=== PATIENT | male | born 1940 | race Caucasian/White ===

== ENCOUNTER 2017-02-06 12:08 | Emergency (ER) | payer OTHER ==
[2017-02-06 12:13] VITALS: BP 153/88; BMI 34.2
--- NOTE | 2017-02-06 12:34 | DR.GENAD ---
HPI - PCP Primary Care Physician: angela - Complaint/Symptoms Chief Complaint Doctors Comments: Patient also reports that he thinks about sex often but has not had intercourse since prostic irradiation and has a desire but no erection. Chief Complaint:: patient stated he has been short of breath that has been going on for several weeks. he also stated he has been weak and tired all the time. - Source History Provided: Patient - Mode of Arrival Mode of Arrival: Ambulatory - Timing Onset of Chief Complaint: 01/09/17 PMH - PMH Past Medical History: Yes Past Medical History: Coronary Artery Disease, Hypertension, Hypothyroidism Past Surgical History: Yes Surgical History: Tonsillectomy - Family History History of Family Medical Conditions: Yes Family Medical History: Coronary Artery Disease - Social History Does patient currently use any type of tobacco product: No Have you used tobacco products in the last 12 months: No Type of Tobacco Use: None Does any household member use tobacco: No Alcohol Use: Rarely Do you use any recreational Drugs:: No Lives With: Family Lives Where: Home - infectious screening In the last 2 months have you had wt loss of >10#?: NO Have you had fever, night sweats or hemotysis?: No Have you traveled outside the country in the last 6 months?: No Isolation: Standard ROS - Review of Systems Eyes: No Symptoms Reported ENTM: No Symptoms Reported Respiratoy: No Symptoms Reported Cardiovascular: No Symptoms Reported Gastrointestinal/Abdominal: No Symptoms Reported Genitourinary: No Symptoms Reported Neurological: No Symptoms Reported Musculoskeletal: No Symptoms Reported Integumentary: No Symptoms Reported Hematologic/Lymphatic: No Symptoms Reported Endocrine: No Symptoms Reported Psychiatric: No Symptoms Reported All Other Systems: Reviewed and Negative PE - Vital Signs Vitals: Temperature 98.9 F Pulse Rate 74 Respiratory Rate 16 Blood Pressure [Left Arm] 137/69 Blood Pressure 153/88 O2 Sat by Pulse Oximetry 98 - General Limitations: No Limitations General Appearance: Alert, In No Apparent Distress - Head Head Exam: Normal Inspection, Atraumatic - Eyes Eye exam: Normal Appearance, PERRL, EOMI - ENT ENT Exam: Normal Exam External Ear Exam: Normal External Inspection TM/Canal Exam: Bilateral Normal Nose Exam: Normal Nose Exam Mouth Exam: Normal Inspection Throat Exam: Normal Inspection - Neck Neck Exam: Normal Inspection, Full ROM - Chest Chest Inspection: Normal Inspection - Respiratory Respiratory Exam: Normal Lung Sounds Bilat Respiratory Exam: Bilateral Clear to Auscultation - Cardiovascular Cardiovascular Exam: Regular Rate, Normal Rhythm - Abdominal Exam Abdominal Exam: Normal Inspection Abdominal Tenderness: negative: RUQ, RLQ, LUQ, LLQ, Epigastrium, Suprapubic, Diffuse, Mild, Moderate, Severe, Other - Extremities Extremities Exam: Normal Inspection, Full ROM - Back Back Exam: Normal Inspection, Full ROM - Neurologic Neurological Exam: Alert, Oriented X3, CN II-XII Intact ROR - Labs Reviewed Result Diagrams: 02/06/17 12:48 02/06/17 12:48 Laboratory: WBC 5.8 X10^3/uL (3.6-10.0) 02/06/17 12:48 RBC 4.20 X10^6/uL (4.7-6.0) L 02/06/17 12:48 Hgb 13.0 g/dL (13.5-18.0) L 02/06/17 12:48 Hct 37.5 % (42.0-54.0) L 02/06/17 12:48 MCV 89.3 fL (80.0-100.0) 02/06/17 12:48 MCH 30.9 pg (27.0-34.0) 02/06/17 12:48 MCHC 34.6 g/dL (33.0-35.0) 02/06/17 12:48 RDW 13.5 % (11.6-16.5) 02/06/17 12:48 Plt Count 140 X10^3/uL (150.0-450.0) L 02/06/17 12:48 MPV 8.4 fL (7.4-11.0) 02/06/17 12:48 Neut % 75.9 % (42.0-75.0) H 02/06/17 12:48 Lymph % 9.8 % (21.0-51.0) L 02/06/17 12:48 Sunflower % 10.4 % (0.0-13.0) 02/06/17 12:48 Eos % 3.3 % (0.9-2.9) H 02/06/17 12:48 Baso % 0.6 % (0.2-1.0) 02/06/17 12:48 Neut # 4.4 x10^3/uL (2.2-4.8) 02/06/17 12:48 Lymph # 0.6 X10^3/uL (1.3-2.9) L 02/06/17 12:48 Sunflower # 0.6 x10^3/uL (0.3-0.8) 02/06/17 12:48 Eos # 0.2 x10^3/uL (0.0-0.2) 02/06/17 12:48 Baso # 0.0 X10^3/uL (0.0-0.1) 02/06/17 12:48 Absolute Nucleated RBC 0.0 /100WBC 02/06/17 12:48 D-Dimer 437 ng/mL (0-400) H* 02/06/17 12:48 Sodium 140 mmol/L (136-145) 02/06/17 12:48 Corrected Sodium TNP 02/06/17 12:48 Potassium 5.0 mmol/L (3.5-5.1) 02/06/17 12:48 Chloride 106 mmol/L (98-107) 02/06/17 12:48 Carbon Dioxide 28.2 mmol/L (21-32) 02/06/17 12:48 BUN 21 mg/dL (7-18) H 02/06/17 12:48 Creatinine 0.97 mg/dL (0.70-1.30) 02/06/17 12:48 Est GFR (MDRD) Af Amer > 60 (>60) 02/06/17 12:48 Est GFR (MDRD) Non-Af > 60 (>60) 02/06/17 12:48 Glucose 93 mg/dL (65-99) 02/06/17 12:48 Calcium 8.9 mg/dL (8.5-10.1) 02/06/17 12:48 Corrected Calcium TNP 02/06/17 12:48 Total Bilirubin 1.30 mg/dL (0.2-1.0) H 02/06/17 12:48 AST 25 Units/L (15-37) 02/06/17 12:48 ALT 34 Units/L (12-78) 02/06/17 12:48 Alkaline Phosphatase 104 Units/L (46-116) 02/06/17 12:48 Creatine Kinase 105 Units/L (39-308) 02/06/17 12:48 CK-MB (CK-2) 1.5 ng/mL (0-4.0) 02/06/17 12:48 CK/CKMB % Calc 1.4 % (<4) 02/06/17 12:48 Troponin I < 0.02 ng/mL (0-1.5) 02/06/17 12:48 Total Protein 7.3 g/dL (6.4-8.2) 02/06/17 12:48 Albumin 3.9 g/dL (3.4-5.0) 02/06/17 12:48 Globulin 3.4 g/dL (2.5-4.5) 02/06/17 12:48 Albumin/Globulin Ratio 1.1 Ratio (1.1-2.1) 02/06/17 12:48 - Diagnosis Discharge Problem: Dyspnea on effort, Erectile disorder due to medical condition in male - Discharge Plan Condition: Stable - Follow ups/Referrals Follow ups/Referrals: Srinivasa Aviles [Primary Care Provider] - 3 days - Instructions
[2017-02-06 13:02] LABS: BASOPHILS % (AUTO) 0.6 % (0.2-1.0); EOSINOPHILS # (AUTO) 0.2 x10^3/uL (0.0-0.2); EOSINOPHILS % (AUTO) 3.3 % (0.9-2.9); HEMATOCRIT 37.5 % (42.0-54.0); LYMPHOCYTES # (AUTO) 0.6 X10^3/uL (1.3-2.9); LYMPHOCYTES % (AUTO) 9.8 % (21.0-51.0); MEAN CORPUSCULAR HEMOGLOBIN 30.9 pg (27.0-34.0); MEAN CORPUSCULAR HGB CONC 34.6 g/dL (33.0-35.0); MEAN CORPUSCULAR VOLUME 89.3 fL (80.0-100.0); MEAN PLATELET VOLUME 8.4 fL (7.4-11.0); MONOCYTES # (AUTO) 0.6 x10^3/uL (0.3-0.8); MONOCYTES % (AUTO) 10.4 % (0.0-13.0); NEUTROPHILS # (AUTO) 4.4 x10^3/uL (2.2-4.8); NEUTROPHILS % (AUTO) 75.9 % (42.0-75.0); PLATELET COUNT 140 X10^3/uL (150.0-450.0); RED CELL DISTRIBUTION WIDTH 13.5 % (11.6-16.5); WHITE BLOOD COUNT 5.8 X10^3/uL (3.6-10.0)
[2017-02-06 13:16] LABS: BLOOD UREA NITROGEN 21 mg/dL (7-18); CALCIUM 8.9 mg/dL (8.5-10.1); CARBON DIOXIDE 28.2 mmol/L (21-32); CHLORIDE 106 mmol/L (98-107); CREATININE 0.97 mg/dL (0.70-1.30); GLUCOSE 93 mg/dL (65-99); SODIUM 140 mmol/L (136-145); TROPONIN I < 0.02 ng/mL (0-1.5); eGFR BLACK RACES > 60 (>60); eGFR NON BLACK RACES > 60 (>60)
[2017-02-06 13:20] LABS: ALANINE AMINOTRANSFERASE 34 Units/L (12-78); ALBUMIN 3.9 g/dL (3.4-5.0); ALKALINE PHOSPHATASE 104 Units/L (46-116); ASPARTATE AMINO TRANSFERASE 25 Units/L (15-37); CKMB % 1.4 % (<4); CREATINE KINASE 105 Units/L (39-308); CREATINE KINASE MB 1.5 ng/mL (0-4.0); TOTAL PROTEIN 7.3 g/dL (6.4-8.2)
--- NOTE | 2017-02-06 13:22 | RAD ---
HISTORY: Shortness of breath Study: Two views of the chest Comparison: December 11, 2015 Findings: The trachea is midline. The cardiac silhouette is at the upper limits of normal. Chronic appearing interstitial changes are again seen within both lungs. The aorta is partially calcified and tortuou s. IMPRESSION: 1. No acute cardiopulmonary disease. Reported By:
[2017-02-06 13:29] LABS: D DIMER 437 ng/mL (0-400)
[2017-02-06] MEDS ORDERED: NS 100 ML IV 100 ML IV ONE (13:55)
--- NOTE | 2017-02-06 14:55 | CT ---
HISTORY: Shortness of breath with elevated D-dimer. Study: CT chest with contrast Comparison: Multiple chest x-rays dating back to December 11, 2015. Technique: Multiple axial images of the chest were obtained from the thoracic inlet to the upper abd omen after the administration of IV contrast. Dose reduction techniques including Automated Exposur e Control (AEC) and adjustment of mA and kV were utilized. Findings: The mediastinum does not demonstrate significant pathological lymphadenopathy. There is no paracard ial effusion observed. The thoracic aorta is normal in its contour without evidence for aneurysmal dilatation. The central pulmonary arterial system does not demonstrate central filling defects to s uggest pulmonary emboli. Cardiomegaly. Extensive vascular calcifications of the coronary arteries. Extensive interstitial thickening of the lungs with associated scarring and likely early honeycombin g within the bilateral lower lobes with associated areas of ground-glass opacity. No obvious pulmona ry nodules, pleural effusion , mass , or focal consolidation. The bony thorax is unremarkable in its appearance. Right 3.4 cm and left 3.8 cm simple appearing renal cysts. Remaining kidneys are unrem arkable. Otherwise, the visualized portions of the upper abdomen are grossly unremarkable. IMPRESSION: 1. No CT evidence of pulmonary embolus. 2. Chronic lung findings, concerning for interstitial lung disease such as UIP. Consider Pulmonary c onsultation and high-resolution chest CT. Reported By:
== END 2017-02-06 15:38 | disposition home or self-care (01) ==
LOC: ER 12:18
DX: R06.00 Dyspnea, unspecified (principal); N52.8 Other male erectile dysfunction; R06.02 Shortness of breath
CPT/HCPCS: 36415; 71020; 71275; 80053; 82550; 82553; 84484; 85025; 85378; 93005; 93010; 99283; A4222

== ENCOUNTER 2022-08-23 08:12 | Observation (INO) ==
--- NOTE | 2022-08-23 08:35 | EKG ---
Test Reason : CHEST PAIN Blood Pressure : */* mmHG Vent. Rate : 71 BPM Atrial Rate : 71 BPM P-R Int : 140 ms QRS Dur : 90 ms QT Int : 400 ms P-R-T Axes : 39 4 54 degrees QTc Int : 434 ms Normal sinus rhythm Normal ECG No previous ECGs available Confirmed by John Salgado ([id number]) on 08/25/2022 9:22:05 AM Referred By: Confirmed By: John Salgado
[2022-08-23 08:37] LABS: BASOPHILS % (AUTO) 0.5 % (0.2-1.0); EOSINOPHILS # (AUTO) 0.1 x10^3/uL (0.0-0.2); EOSINOPHILS % (AUTO) 0.9 % (0.9-2.9); HEMATOCRIT 37.5 % (42.0-54.0); HEMOGLOBIN 12.7 g/dL (13.5-18.0); LYMPHOCYTES # (AUTO) 1.3 X10^3/uL (1.3-2.9); LYMPHOCYTES % (AUTO) 18.8 % (21.0-51.0); MEAN CORPUSCULAR HEMOGLOBIN 30.5 pg (27.0-34.0); MEAN CORPUSCULAR HGB CONC 33.9 g/dL (33.0-35.0); MEAN CORPUSCULAR VOLUME 90.1 fL (80.0-100.0); MEAN PLATELET VOLUME 7.3 fL (7.4-11.0); MONOCYTES # (AUTO) 0.6 x10^3/uL (0.3-0.8); MONOCYTES % (AUTO) 8.4 % (0.0-13.0); NEUTROPHILS # (AUTO) 5.1 x10^3/uL (2.2-4.8); NEUTROPHILS % (AUTO) 71.4 % (42.0-75.0); RED BLOOD COUNT 4.17 X10^6/uL (4.7-6.0); WHITE BLOOD COUNT 7.2 X10^3/uL (3.6-10.0)
--- NOTE | 2022-08-23 08:37 | DR.CP ---
HPI Time Seen Time Seen by Provider: 08/23/22 08:35 PCP Primary Care Physician: Stefan Complaint Chief Complaint Doctor Comments: CHEST PAIN THAT AWAKENED HIVM THIS AM. PAIN HYRTS MORE WHEN HE BREATHES IN AND HE ALSO HAS SOB. NO PREVIOUS CARDIAC HISTORY. Chief Complaint:: Pts states that he woke up 2-3 hours ago having chest pain. On arrival pt describes pain as mid sternal and nonradiating. Pt states that the pain happens when he tries to take a deep breath and he feels like he cannot get a good breath. Pt states that he has never felt like this before. Self Treatment fo Chief Complaint: none COVID-19 Coronavirus risk:travel/contact w/high risk person: No Has patient experienced Coronavirus symptoms: Yes Coronavirus symptoms experienced: Shortness of Breath Source History Provided: Patient and Family Member Mode of Arrival Mode of Arrival: Wheelchair Timing Onset of Chief Complaint: 08/23/22 Associated Signs and Symptoms Associated Signs and Symptoms: Shortness of Breath PMH PMH Past Medical History: Yes Past Medical History: Hypertension and Hypothyroidism Past Surgical History: Yes Surgical History: Ortho Surgery, Tonsillectomy and Lithotripsy Past Surgical History Comment: knee surgery shoulder surgery skin ca removal hemorrhoid surgery x2 Family History History of Family Medical Conditions: Yes Family Medical History: Hypertension Social History Does patient currently use any type of tobacco product: No Have you used tobacco products in the last 12 months: No Type of Tobacco Use: None Alcohol Use: None Do you use any recreational Drugs:: No Lives With: Alone Lives Where: Home Travel Risk Coronavirus risk:travel/contact w/high risk person: No Has patient experienced Coronavirus symptoms: Yes Coronavirus symptoms experienced: Shortness of Breath Infectious screening In the last 2 months have you had wt loss of >10#?: NO Have you had fever, night sweats or hemotysis?: No Have you traveled outside the country in the last 6 months?: No Isolation: Respiratory ROS Review of Systems Constitutional: Other (CHEST PAIN WITH SOB) Eyes: No Symptoms Reported ENTM: No Symptoms Reported Respiratoy: Short of Breath Cardiovascular: Chest Pain Gastrointestinal/Abdominal: No Symptoms Reported Genitourinary: No Symptoms Reported Neurological: No Symptoms Reported Musculoskeletal: No Symptoms Reported Integumentary: No Symptoms Reported Hematologic/Lymphatic: No Symptoms Reported Endocrine: No Symptoms Reported Psychiatric: No Symptoms Reported PE Vitals Vitals: Temperature 97.7 F Pulse Rate 59 Respiratory Rate 20 Blood Pressure [Right Arm] 142/89 Blood Pressure 124/68 O2 Sat by Pulse Oximetry 100 General Limitations: No Limitations General Appearance: In Distress (MILD DISTRESS) Head Head Exam: Normal Inspection, Atraumatic and Normocephalic Eyes Eye exam: Normal Appearance, PERRL and EOMI Chest Chest Inspection: Normal Inspection and Symmetric Chest Wall Rise Respiratory Respiratory Exam: Normal Lung Sounds Bilat Respiratory Exam: Bilateral: Clear to Auscultation Cardiovascular Cardiovascular Exam: Regular Rate and Normal Rhythm Pulse: Normal Edema: Normal Abdominal Exam Abdominal Exam: Normal Inspection, Normal Bowel Sounds and Soft Extremities Extremities Exam: Normal Inspection and Full ROM Back Back Exam: Normal Inspection and Full ROM Neurologic Neurological Exam: Alert, Oriented X3 and CN II-XII Intact Psychiatric Psychiatric Exam: Normal Affect and Normal Mood Skin Skin Exam: Warm, Dry and Intact MDM Differential Diagnosis Differential Diagnosis: Angina, Chest Wall Pain, Myocardial Infarction and Pneumonia COURSE Treatment Treatment: PATIENT REMAINED RELATIVELY STABLE DURING ER EVALUATION. WAS GIVEN ASA 325MG AND NITROGLYCERINE 0.4MG SL AND HIS BLOOD PRESURE DROPPED TO 70 SYSTOLIC, WAS GIVEN A 1 LITER BOLUS OF NACL AND BP INCREASED TO 110 SYSTOLIC. THE PATIENT HAD A D-DIMER DONE THAT WAS ELEVATED AND HE WAS SENT TO GET CTA OF CHEST. THE CARDIAC WORKUP WAS NEGATIVE AND CHEST XRAY WAS NEGATIVE FOR INTRATHORACIC ABNORMALITY. HE HAD A ABG THAT WAS ESSENTIALLLY NORMAL AND HE WAS PLACED ON OXYGEN AND HE STATED THAT HIS SOB IMPROVED AND CHEST DISCOMFORT DEMINISHED.SPOKE TO DR RINCON ABOUT THIS PATIENT AND HE AGREED TO REFER THE PATIENT TO OBSERVATION UNDER THE CHEST PAIN PROTOCHOL. THE PATIENT AND FAMILY WERE TOLD OF THE PLAN AND WAS AGREABLE TO THE PLAN. ROR Labs Reviewed Laboratory Results Reviewed?: Yes Result Diagrams: 08/23/22 08:22 08/23/22 08:22 Laboratory: WBC 7.2 X10^3/uL (3.6-10.0) 08/23/22 08:22 RBC 4.17 X10^6/uL (4.7-6.0) L 08/23/22 08:22 Hgb 12.7 g/dL (13.5-18.0) L 08/23/22 08:22 Hct 37.5 % (42.0-54.0) L 08/23/22 08:22 MCV 90.1 fL (80.0-100.0) 08/23/22 08: MCH 30.5 pg (27.0-34.0) 08/23/22 08: MCHC 33.9 g/dL (33.0-35.0) 08/23/22 08: RDW 15.0 % (11.6-16.5) 08/23/22 08: Plt Count 131 X10^3/uL (150.0-450.0) L 08/23/22 08: MPV 7.3 fL (7.4-11.0) L 08/23/22 08: Neut % (Auto) 71.4 % (42.0-75.0) 08/23/22 08: Lymph % (Auto) 18.8 % (21.0-51.0) L 08/23/22 08: [place] % (Auto) 8.4 % (0.0-13.0) 08/23/22 08: Eos % (Auto) 0.9 % (0.9-2.9) 08/23/22 08: Baso % (Auto) 0.5 % (0.2-1.0) 08/23/22 08: Neut # (Auto) 5.1 x10^3/uL (2.2-4.8) H 08/23/22 08: Lymph # (Auto) 1.3 X10^3/uL (1.3-2.9) 08/23/22 08: [place]estone # (Auto) 0.6 x10^3/uL (0.3-0.8) 08/23/22 08: Eos # (Auto) 0.1 x10^3/uL (0.0-0.2) 08/23/22 08: Baso # (Auto) 0.0 X10^3/uL (0.0-0.1) 08/23/22 08: Absolute Nucleated RBC 0.0 /100WBC 08/23/22 08: PT 15.7 SECONDS (11.8-14.3) 08/23/22 08: INR Target Range - 08/23/22 08: INR 1.30 (0.8-1.3) 08/23/22 08:22 APTT 29.7 SECONDS (22.9-36.5) 08/23/22 08:22 PTT Comment - 08/23/22 08:22 D-Dimer 1.94 ug/ml (0.0-0.57) H 08/23/22 08:22 Sample Site Lra 08/23/22 09:12 ABG pH 7.470 (7.35-7.45) H 08/23/22 09:12 ABG pCO2 36.0 mmHg (35.0-45.0) 08/23/22 09:12 ABG pO2 72.0 mmHg (80.0-100.0) L 08/23/22 09:12 ABG HCO3 26.2 mmol/L (22-26) H 08/23/22 09:12 ABG O2 Saturation 95.0 % (90-100) 08/23/22 09:12 ABG Base Excess 2.6 mmol/L (-2.0-2.0) H 08/23/22 09:12 Lkoesh Test Pos 08/23/22 09:12 A-a Gradient 33.0 mmHg 08/23/22 09:12 FiO2 21.0 08/23/22 09:12 Blood Gas Comments Pt martha well eb 08/23/22 09:12 Sodium 139 mmol/L (136-145) 08/23/22 08:22 Corrected Sodium TNP 08/23/22 08:22 Potassium 4.5 mmol/L (3.5-5.1) 08/23/22 08:22 Chloride 103 mmol/L (98-107) 08/23/22 08:22 Carbon Dioxide 28.1 mmol/L (21-32) 08/23/22 08:22 BUN 17 mg/dL (7-18) 08/23/22 08:22 Creatinine 1.06 mg/dL (0.70-1.30) 08/23/22 08:22 Est GFR (MDRD) Af Amer > 60 (>60) 08/23/22 08:22 Est GFR (MDRD) Non-Af > 60 (>60) 08/23/22 08:22 Glucose 96 mg/dL (65-99) 08/23/22 08:22 Calcium 8.8 mg/dL (8.5-10.1) 08/23/22 08:22 Corrected Calcium TNP 08/23/22 08:22 Total Bilirubin 1.40 mg/dL (0.2-1.0) H 08/23/22 08:22 AST 31 Units/L (15-37) 08/23/22 08:22 ALT 41 Units/L (12-78) 08/23/22 08:22 Alkaline Phosphatase 131 Units/L (46-116) H 08/23/22 08:22 Creatine Kinase 54 Units/L (39-308) 08/23/22 08:22 Troponin I High Sens 12.2 ng/L (4.0-60.0) 08/23/22 08:22 B-Natriuretic Peptide 107 pg/mL (0-79) H 08/23/22 08:22 Total Protein 6.7 g/dL (6.4-8.2) 08/23/22 08:22 Albumin 3.6 g/dL (3.4-5.0) 08/23/22 08:22 Globulin 3.1 g/dL (2.5-4.5) 08/23/22 08:22 Albumin/Globulin Ratio 1.2 Ratio (1.1-2.1) 08/23/22 08:22 Thyroxine (T4) 10.7 ug/dL (4.7-13.3) 08/23/22 08:22 TSH 3rd Generation 3.480 uIU/mL (0.358-3.74) 08/23/22 08:22 SARS-CoV-2 (PCR) Negative (NEGATIVE) 08/23/22 08:23 Influenza Type A (PCR) Negative (NEGATIVE) 08/23/22 08:23 Influenza Type B (PCR) Negative (NEGATIVE) 08/23/22 08:23 RSV (PCR) Negative (NEGATIVE) 08/23/22 08:23 Opioid Opioid Risk Tool Age (Luke box if 16-45): Yes History of Preadolescent Sexual Abuse: No Total: 1 Total Score Risk Category: Low Risk Copyright: Jose BARRAZA predicting aberrant behaviors Discharge Plan Diagnosis Discharge Problem: Chest pain, Breath shortness Discharge Plan Patient Disposition: 09 ADMITTED INPATIENT Condition: Stable Orders to Discharge Patient Discharge Orders: Discharge (Routine); Ordered 08/23/22 Ordered By: Puma Royal Transfer (Routine); Ordered 08/23/22 Ordered By: Puma Royal
[2022-08-23] MEDS ORDERED: NITROSTAT SL ONE (08:38)
[2022-08-23] MEDS ORDERED: ASPIRIN PO ONE (08:38)
[2022-08-23] MEDS ORDERED: ASPIRIN ONE (08:46)
[2022-08-23] MEDS ORDERED: NITROSTAT ONE (08:46)
[2022-08-23 08:53] LABS: ALANINE AMINOTRANSFERASE 41 Units/L (12-78); ALBUMIN 3.6 g/dL (3.4-5.0); ALKALINE PHOSPHATASE 131 Units/L (46-116); ASPARTATE AMINO TRANSFERASE 31 Units/L (15-37); BLOOD UREA NITROGEN 17 mg/dL (7-18); CALCIUM 8.8 mg/dL (8.5-10.1); CARBON DIOXIDE 28.1 mmol/L (21-32); CHLORIDE 103 mmol/L (98-107); CREATININE 1.06 mg/dL (0.70-1.30); SODIUM 139 mmol/L (136-145); TOTAL PROTEIN 6.7 g/dL (6.4-8.2); eGFR NON BLACK RACES > 60 (>60)
[2022-08-23] MEDS ORDERED: NS 1,000 ML IV 1,000 ML ONE (09:02)
[2022-08-23] MEDS ORDERED: NS 1,000 ML IV 1,000 ML IV ONE (09:06)
[2022-08-23 09:20] LABS: ABG BASE EXCESS 2.6 mmol/L (-2.0-2.0); ABG HCO3 26.2 mmol/L (22-26)
[2022-08-23 09:21] LABS: ABG ALLEN TEST POS
[2022-08-23 09:37] LABS: T4 (THYROXINE) 10.7 ug/dL (4.7-13.3); TSH (3RD GENERATION) 3.48 uIU/mL (0.358-3.74)
--- NOTE | 2022-08-23 11:06 | CT ---
CTA CHESTCLINICAL INDICATION: MIDSTERNAL CHEST PAIN, SOB, ELEV D DIMERPROCEDURE: Non gated axial images of the chest were obtained with intravenous contrast according to pulmonary embolism protocol. MIPS were reconstructed Dose reduction techniques including Automated Exposure Control (AEC) and adjustment of mA and kV were utlized.COMPARISON:NoneFINDINGS:No evidence of a pulmonary embolism to the level of the segmental pulmonary arteries.The heart is normal in size . No pericardial effusion. Severe coronary calcification. No suspicious mediastinal or axillary lymph nodes. Severe fibrosis of the peripheral basilar lungs with probable superimposed emphysema. No focal consolidations, pleural effusions or pneumothorax .Airways are patent . No suspicious pulmonary nodules or masses .Simple bilateral renal cysts. Left adrenal nodule measuring 1.8 cm in 24 Hounsfield units.No aggressive osseous lesions.IMPRESSION:1. No evidence of pulmonary embolism.2. Severe coronary calcification, severe fibrosis of the lungs.3. Indeterminate left adrenal nodule which could be evaluated on a nonemergent outpatient basis by MRI.Electronically signed by: LOKESH BIRCH (Aug 23, 2022 11:05:40)
--- NOTE | 2022-08-23 12:27 | RAD ---
HISTORYCHEST PAIN Relevant Clinical InformationSTUDYCHEST, 1 VIEWCOMPARISON03/14/2021FINDINGSTrachea is minimal deviated to the right there is a prominence are thick no. There is mild cardiomegaly. There is again seen interstitial changes throughout the lungs of predominance in the periphery and in the bases consistent with mild fibrosis. No dominant alveolar radiopacities, no pleural effusion or pneumothorax. There is a left shoulder prosthesis in place.IMPRESSIONNo acute cardiopulmonary findings. Stable chronic interstitial lung disease.Electronically signed by: Alycia Oakes (Aug 23, 2022 12:25:39)
[2022-08-23] MEDS: NS 1,000 ML IV 1,000 ML IV SCH (13:40)
[2022-08-23] MEDS: HEMOCYTE-PLUS PO SCH (13:40)
[2022-08-23] MEDS: ALDACTONE TAB 25 MG PO SCH (13:40)
[2022-08-23] MEDS: SYNTHROID 100 mcg TAB PO SCH (13:40)
[2022-08-23 15:52] VITALS: BMI 24.5
[2022-08-23] MEDS ORDERED: LOVENOX INJ 40 MG SYR SC ONE (19:24)
[2022-08-23] MEDS ORDERED: FLOMAX ONE (19:24)
[2022-08-23] MEDS ORDERED: LIPITOR TAB 40 MG ONE (19:24)
[2022-08-23] MEDS ORDERED: SINGULAIR TAB 10 MG ONE (19:24)
[2022-08-23] MEDS ORDERED: KLONOPIN TAB 1 MG ONE (19:24)
[2022-08-23] MEDS: LOVENOX INJ 40 MG SYR SC SCH (20:26)
[2022-08-23] MEDS ORDERED: SINGULAIR TAB 10 MG PO SCH (21:00)
[2022-08-23] MEDS ORDERED: LIPITOR TAB 40 MG PO SCH (21:00)
[2022-08-23] MEDS ORDERED: FLOMAX PO SCH (21:00)
[2022-08-23] MEDS ORDERED: KLONOPIN TAB 1 MG PO SCH (21:00)
[2022-08-24] MEDS: NS 1,000 ML IV 1,000 ML IV SCH ×2 (02:09→04:25)
[2022-08-24 05:55] LABS: BASOPHILS % (AUTO) 0.4 % (0.2-1.0); EOSINOPHILS % (AUTO) 0.5 % (0.9-2.9); HEMATOCRIT 30.4 % (42.0-54.0); LYMPHOCYTES # (AUTO) 1.6 X10^3/uL (1.3-2.9); LYMPHOCYTES % (AUTO) 22.1 % (21.0-51.0); MEAN CORPUSCULAR HEMOGLOBIN 31.2 pg (27.0-34.0); MEAN CORPUSCULAR HGB CONC 34.9 g/dL (33.0-35.0); MEAN CORPUSCULAR VOLUME 89.4 fL (80.0-100.0); MEAN PLATELET VOLUME 8.2 fL (7.4-11.0); MONOCYTES # (AUTO) 0.8 x10^3/uL (0.3-0.8); MONOCYTES % (AUTO) 11.4 % (0.0-13.0); NEUTROPHILS # (AUTO) 4.7 x10^3/uL (2.2-4.8); NEUTROPHILS % (AUTO) 65.6 % (42.0-75.0); RED BLOOD COUNT 3.41 X10^6/uL (4.7-6.0); RED CELL DISTRIBUTION WIDTH 14.8 % (11.6-16.5); WHITE BLOOD COUNT 7.2 X10^3/uL (3.6-10.0)
[2022-08-24 05:57] LABS: HEMOGLOBIN 10.6 g/dL (13.5-18.0)
[2022-08-24 06:18] LABS: ALANINE AMINOTRANSFERASE 30 Units/L (12-78); ALBUMIN 2.6 g/dL (3.4-5.0); ALKALINE PHOSPHATASE 90 Units/L (46-116); ASPARTATE AMINO TRANSFERASE 24 Units/L (15-37); BLOOD UREA NITROGEN 16 mg/dL (7-18); CALCIUM 7.8 mg/dL (8.5-10.1); CHLORIDE 105 mmol/L (98-107); CHOL/HDL RATIO 1.5 (0.0-5.0); CHOLESTEROL 80 mg/dL (0-200); COR CA(FOR HYPOALB) 8.9 mg/dL (8.5-10.1); CREATININE 0.86 mg/dL (0.70-1.30); HDL CHOLESTEROL 54 mg/dL (40-60); SODIUM 138 mmol/L (136-145); TOTAL PROTEIN 5.3 g/dL (6.4-8.2); TRIGLYCERIDES 39 mg/dL (0-150); eGFR NON BLACK RACES > 60 (>60)
[2022-08-24] MEDS: LOVENOX INJ 40 MG SYR SC SCH (08:34)
[2022-08-24] MEDS: HEMOCYTE-PLUS PO SCH (08:35)
[2022-08-24] MEDS: ALDACTONE TAB 25 MG PO SCH (08:36)
[2022-08-24] MEDS: SYNTHROID 100 mcg TAB PO SCH (08:36)
[2022-08-24] MEDS ORDERED: PROTONIX INJ 40 MG VIAL IVP SCH (09:00)
[2022-08-24] MEDS ORDERED: ASPIRIN PO SCH (09:00)
[2022-08-24 10:50] VITALS: BP 103/53
== END 2022-08-24 11:35 | disposition home or self-care (01) ==
LOC: ER 08:12 → ICU 08:12
PROVIDERS: ADMIT Internal Medicine; ATTEND Internal Medicine
DX: I10 Essential (primary) hypertension; Z85.828 Personal history of other malignant neoplasm of skin; R06.02 Shortness of breath; D35.02 Benign neoplasm of left adrenal gland; Z20.822 Contact with and (suspected) exposure to COVID-19; N28.1 Cyst of kidney, acquired; R79.1 Abnormal coagulation profile; E03.8 Other specified hypothyroidism; R07.89 Other chest pain; J84.10 Pulmonary fibrosis, unspecified

== ENCOUNTER 2024-07-06 09:01 | Inpatient (IN) ==
--- NOTE | 2024-07-06 09:37 | DR.EXTPAIN ---
HPI Time seen Time Seen by Provider: 07/06/24 09:34 PCP Primary Care Physician: Stefan HPI Comment HPI Comment: 84-year-old male with history of CADStatus post stent placement was brought in by his daughter after they found him on the floor, apparently passed out and fell last night and hit his head. He could not get up because of stiffness in his right hip and leg, hip pain. He had total knee replacement on the left side. He went up to go to the bathroom last night to pee and had a hard time initiating his micturition. He has history of prostate cancer in the past. He denies any chest pain or shortness of breath. Granddaughter measured his b lood pressure yesterday and noted to be lower than usual. He is not sure if he had fever but felt chills, muscle aches, questionable flu symptoms with a dry cough Complaint/Symptoms Chief Complaint Doctor Comments: Passed out and hit his head Chief Complaint:: Pt got up last night to get some water and his family found him in the floor this morning. Unsure of what he landed on but states that he has back pain. COVID-19 Coronavirus risk:travel/contact w/high risk person: No Has patient experienced Coronavirus symptoms: Yes Coronavirus symptoms experienced: Fever and Coughing Nurses notes reviewed Nurses Notes Review: Yes Source History Provided: Patient and Family Member Mode of arrival Mode of Arrival: Ambulatory Timing Onset of Chief Complaint: 07/06/24 Context History of: Arthritis and Nonaccidental Trauma Associated signs and symptoms Associated Signs and Symptoms: Abrasion, Weakness, Pain, Swelling, Bruising and Syncope PMH PMH Past Medical History: Yes Past Medical History: Anxiety, Coronary Artery Disease, Dyslipidemia, GERD, Hypertension and Hypothyroidism Past Surgical History: Yes Surgical History: Angioplasty/Stents, Joint Replacement, Ortho Surgery, Tonsillectomy and Other Past Surgical History Comment: Hemorrhoid sx Family History History of Family Medical Conditions: Yes Family Medical History: Coronary Artery Disease and Hypertension Social History Does patient currently use any type of tobacco product: No Have you used tobacco products in the last 12 months: No Does any household member use tobacco: No Alcohol Use: None Do you use any recreational Drugs:: No Lives With: Alone Lives Where: Home Travel Risk Coronavirus risk:travel/contact w/high risk person: No Has patient experienced Coronavirus symptoms: No Infectious screening Have you traveled outside the country in the last 6 months?: No Isolation: Standard ROS Review of Systems Constitutional: Chills, Fever, Malaise, Weakness and Loss of Appetite Eyes: No Symptoms Reported ENTM: No Symptoms Reported Respiratoy: Non-Productive Cough; negative Short of Breath Cardiovascular: Syncope; negative Chest Pain, Edema, Palpitations or Cyanosis Gastrointestinal/Abdominal: Nausea; negative Abdominal Pain, Constipation or Diarrhea Genitourinary: See HPI and Frequency; negative Discharge, Dysuria or Hematuria Neurological: No Symptoms Reported; negative Anxiety, Headache, Pre-existing Deficit, Seizure or Dizziness Musculoskeletal: No Symptoms Reported Integumentary: No Symptoms Reported Hematologic/Lymphatic: No Symptoms Reported Endocrine: Decreased Appetite Psychiatric: No Symptoms Reported All Other Systems: Reviewed and Negative PE Vital Signs Vitals: Vital Signs Temperature 97.5 F Temperature 97.5 F Temperature 97.5 F Temperature 97.5 F Pulse Rate [Left Radial] 91 Pulse Rate 78 Pulse Rate 80 Pulse Rate 80 Pulse Rate 80 Pulse Rate 80 Pulse Rate 80 Pulse Rate 82 Pulse Rate 85 Pulse Rate 81 Pulse Rate 83 Pulse Rate 83 Pulse Rate 82 Pulse Rate 84 Pulse Rate 86 Pulse Rate 90 Pulse Rate 88 Pulse Rate 90 Pulse Rate 90 Pulse Rate 89 Pulse Rate 89 Pulse Rate 92 Pulse Rate 91 Respiratory Rate 20 Respiratory Rate 18 Respiratory Rate 18 Respiratory Rate 21 Respiratory Rate 20 Respiratory Rate 18 Respiratory Rate 21 Respiratory Rate 19 Respiratory Rate 17 Respiratory Rate 20 Respiratory Rate 18 Respiratory Rate 15 Respiratory Rate 15 Respiratory Rate 22 Respiratory Rate 17 Respiratory Rate 19 Respiratory Rate 21 Respiratory Rate 17 Respiratory Rate 21 Respiratory Rate 17 Respiratory Rate 16 Respiratory Rate 16 Respiratory Rate 17 Blood Pressure [Right Arm] 99/58 Blood Pressure 136/79 Blood Pressure 131/72 Blood Pressure 128/70 Blood Pressure 128/70 Blood Pressure 113/69 Blood Pressure 115/66 Blood Pressure 121/68 Blood Pressure 123/65 Blood Pressure 117/66 Blood Pressure 103/59 Blood Pressure 99/61 Blood Pressure 90/52 Blood Pressure 83/54 Blood Pressure 86/52 Blood Pressure 99/58 Blood Pressure 99/58 Blood Pressure 99/58 O2 Sat by Pulse Oximetry 96 O2 Sat by Pulse Oximetry 96 O2 Sat by Pulse Oximetry 95 O2 Sat by Pulse Oximetry 94 O2 Sat by Pulse Oximetry 95 O2 Sat by Pulse Oximetry 95 O2 Sat by Pulse Oximetry 95 O2 Sat by Pulse Oximetry 96 O2 Sat by Pulse Oximetry 95 O2 Sat by Pulse Oximetry 94 O2 Sat by Pulse Oximetry 93 O2 Sat by Pulse Oximetry 95 O2 Sat by Pulse Oximetry 95 O2 Sat by Pulse Oximetry 96 O2 Sat by Pulse Oximetry 95 O2 Sat by Pulse Oximetry 98 O2 Sat by Pulse Oximetry 96 O2 Sat by Pulse Oximetry 86 O2 Sat by Pulse Oximetry 93 O2 Sat by Pulse Oximetry 96 O2 Sat by Pulse Oximetry 95 General Limitations: No Limitations General Appearance: Alert and In No Apparent Distress Head Head Exam: Atraumatic (Scalp hematoma with contusion and abrasion on the vertex) Eyes Eye exam: Normal Appearance, PERRL and EOMI; negative Scleral Icterus, Conjunctival Injection or Miosis ENT ENT Exam: Normal Exam Neck Neck Exam: Trachea Midline and Tenderness; negative Lymphadenopathy Chest Chest Inspection: Normal Inspection and Symmetric Chest Wall Rise; negative Tenderness Respiratory Respiratory Exam: Normal Lung Sounds Bilat; negative Accessory Muscle Use Abdominal Exam Abdominal Exam: Normal Inspection, Normal Bowel Sounds and Soft; negative Distention or Tenderness Extremities Extremities Exam: Normal Capillary Refill; negative Full ROM (Diminished range of motion, right hip with rigidity of the right lower extremity, Appears atraum atic) or Edema Upper Extremities Shoulder Exam: Normal Inspection and Full ROM Neuromotor Exam: Normal Exam Lower Extremities Hip/Pelvis Exam: Tenderness (Diminished range of motion of the right hip) and Pelvis Stable; negative Laceration or External Rotation Lower Leg Exam: Normal Inspection Ankle Exam: Normal Inspection Back Back Exam: Normal Inspection and Full ROM Neurological Neurological Exam: Alert, Oriented X3 and CN II-XII Intact; negative Motor Sensory Deficit Psychiatric Psychiatric Exam: Normal Mood and Flat Affect; negative Anxious Skin Skin Exam: Warm and Normal Color MDM Differential Diagnosis Differential Diagnosis: Abrasion, Contusion, Fracture, Hematoma, Sprain and Other (ACS, arrhythmias, hypotension, thyroid disorder, dehydration, electrolyte abnormality) COURSE Consultation Called: 12:29 Call Returned: 12:29 Consultation Comments: Dr. Stephenson, Ortho: will see him outpatient, pain mgt for now, no surgical procedures needed. ROR Labs Reviewed Laboratory Results Reviewed?: Yes 07/06/24 09:20 07/06/24 09:20 Laboratory: WBC 8.6 X10^3/uL (3.6-10.0) 07/06/24 09:20 RBC 3.63 X10^6/uL (4.7-6.0) L 07/06/24 09:20 Hgb 12.5 g/dL (13.5-18.0) L 07/06/24 09:20 Hct 34.5 % (42.0-54.0) L 07/06/24 09:20 MCV 95.1 fL (80.0-100.0) 07/06/24 09:20 MCH 34.5 pg (27.0-34.0) H 07/06/24 09:20 MCHC 36.2 g/dL (33.0-35.0) H 07/06/24 09:20 RDW 14.0 % (11.6-16.5) 07/06/24 09:20 Plt Count 63 X10^3/uL (150.0-450.0) L 07/06/24 09:20 MPV 9.1 fL (7.4-11.0) 07/06/24 09:20 Neut % (Auto) 82.5 % (42.0-75.0) H 07/06/24 09:20 Lymph % (Auto) 10.9 % (21.0-51.0) L 07/06/24 09:20 Greer % (Auto) 6.3 % (0.0-13.0) 07/06/24 09:20 Eos % (Auto) 0.2 % (0.9-2.9) L 07/06/24 09:20 Baso % (Auto) 0.1 % (0.2-1.0) L 07/06/24 09:20 Neut # (Auto) 7.1 x10^3/uL (2.2-4.8) H 07/06/24 09:20 Lymph # (Auto) 0.9 X10^3/uL (1.3-2.9) L 07/06/24 09:20 Greer # (Auto) 0.5 x10^3/uL (0.3-0.8) 07/06/24 09:20 Eos # (Auto) 0.0 x10^3/uL (0.0-0.2) 07/06/24 09:20 Baso # (Auto) 0.0 X10^3/uL (0.0-0.1) 07/06/24 09:20 Absolute Nucleated RBC 0.0 /100WBC 07/06/24 09:20 Sodium 141 mmol/L (136-145) 07/06/24 09:20 Corrected Sodium 143 mmol/L (136-145) 07/06/24 09:20 Potassium 4.6 mmol/L (3.5-5.1) 07/06/24 09:20 Chloride 105 mmol/L (98-107) 07/06/24 09:20 Carbon Dioxide 25.8 mmol/L (21-32) 07/06/24 09:20 BUN 27 mg/dL (7-18) H 07/06/24 09:20 Creatinine 1.28 mg/dL (0.70-1.30) 07/06/24 09:20 Est GFR (MDRD) Af Amer > 60 (>60) 07/06/24 09:20 Est GFR (MDRD) Non-Af 57 (>60) L 07/06/24 09:20 Glucose 175 mg/dL (65-99) H 07/06/24 09:20 Calcium 9.0 mg/dL (8.5-10.1) 07/06/24 09:20 Corrected Calcium 9.6 mg/dL (8.5-10.1) 07/06/24 09:20 Total Bilirubin 2.50 mg/dL (0.2-1.0) H 07/06/24 09:20 AST 32 Units/L (15-37) 07/06/24 09:20 ALT 30 Units/L (12-78) 07/06/24 09:20 Alkaline Phosphatase 112 Units/L (46-116) 07/06/24 09:20 Creatine Kinase 146 Units/L (39-308) 07/06/24 09:20 Troponin I High Sens 9.9 ng/L (4.0-60.0) 07/06/24 09:20 Total Protein 6.5 g/dL (6.4-8.2) 07/06/24 09:20 Albumin 3.3 g/dL (3.4-5.0) L 07/06/24 09:20 Globulin 3.2 g/dL (2.5-4.5) 07/06/24 09:20 Albumin/Globulin Ratio 1.0 Ratio (1.1-2.1) L 07/06/24 09:20 TSH 3rd Generation 1.962 uIU/mL (0.358-3.74) 07/06/24 09:20 SARS-CoV-2 (PCR) Negative (NEGATIVE) 07/06/24 09:20 Influenza Type A (PCR) Negative (NEGATIVE) 07/06/24 09:20 Influenza Type B (PCR) Negative (NEGATIVE) 07/06/24 09:20 RSV (PCR) Negative (NEGATIVE) 07/06/24 09:20 XRAY X-ray Results: Questionable pubic ramus and acetabular fracture seen, will follow-up with CT scan of the right hip and pelvis. CT R hip: The visualized right sacrum and right SI joint are normal. There is a fracture of the medial right acetabulum corresponding to the cortical abnormality noted on plain films. This is best visualized on axial series 3, image 50 and coronal series 6 images 31 through 32. There is a fracture of the mid right inferior pubic ramus also accounting for the cortical irregularity identified on the recent plain films. Proximal femur is intact. No hip joint effusion is identified. No periarticular soft tissue abnormalities identified. IMPRESSION: Fracture of the medial right acetabulum as described above Fracture of the right inferior pubic ramus No proximal femoral fracture noted EKG Compared to prior EKG Dated: 07/06/24 Rate: 89 Globe: Normal Rhythm: NSR Opioid Opioid Risk Tool Age (Luke box if 16-45): No History of Preadolescent Sexual Abuse: No Total: 0 Total Score Risk Category: Low Risk Copyright: Jose BARRAZA predicting aberrant behaviors Procedures Laceration/Wound Repair Posterior Head: Wound Length (cm): 2 Wound's Depth, Shape: Superficial Irrigated w/ Saline (ccs): 10 Wound Repaired With: Dermabond Layer Closure?: No Sterile Dressing Applied?: No Progress: Hemostasis achieved with Dermabond application. Additional Procedures Progress: Scalp contusion with mild abrasions, cleaned and dressed and applied Dermabond for hemostasis. Patient was also given IV fluids for his mildly low blood pressure, responded well to normal saline. Discharge Plan Diagnosis Discharge Problem: Fall, Acute hypotension, Closed pelvic fracture, Contusion of scalp, initial encounter Discharge Plan Patient Disposition: ADMITTED INPATIENT Condition: Stable Prescription drug monitoring program results: PDMP was not reviewed Orders to Discharge Patient Discharge Orders: Discharge (Routine); Ordered 07/06/24 Ordered By: Savage Patel Transfer (Routine); Ordered 07/06/24 Ordered By: Savage Patel ADDITIONAL NOTES Additional Notes Additional Notes: Patient agreed to be admitted for OBS, discussed with Dr. James and will put him in the hospital for pain management and may be admitted to a swing bed later on
[2024-07-06] MEDS: NS 250 ML IV 250 ML IV ONE ×2 (09:52→14:44)
--- NOTE | 2024-07-06 09:54 | EKG ---
Test Reason : passed out, low BP Blood Pressure : */* mmHG Vent. Rate : 89 BPM Atrial Rate : 89 BPM P-R Int : 140 ms QRS Dur : 92 ms QT Int : 376 ms P-R-T Axes : 34 0 36 degrees QTc Int : 457 ms Normal sinus rhythm Normal ECG When compared with ECG of 23-AUG-2022 08:33, T wave amplitude has decreased in Anterior leads Confirmed by Shane Lyman MD ([id number]) on 07/07/2024 7:34:09 AM Referred By: Confirmed By: Shane Lyman MD
[2024-07-06 10:05] LABS: ALANINE AMINOTRANSFERASE 30 Units/L (12-78); ALBUMIN 3.3 g/dL (3.4-5.0); ALKALINE PHOSPHATASE 112 Units/L (46-116); ASPARTATE AMINO TRANSFERASE 32 Units/L (15-37); BLOOD UREA NITROGEN 27 mg/dL (7-18); CARBON DIOXIDE 25.8 mmol/L (21-32); CHLORIDE 105 mmol/L (98-107); COR CA(FOR HYPOALB) 9.6 mg/dL (8.5-10.1); COR NA(FOR HYPERGLY) 143 mmol/L (136-145); CREATININE 1.28 mg/dL (0.70-1.30); GLUCOSE 175 mg/dL (65-99); POTASSIUM 4.6 mmol/L (3.5-5.1); SODIUM 141 mmol/L (136-145); TOTAL PROTEIN 6.5 g/dL (6.4-8.2); eGFR NON BLACK RACES 57 (>60)
[2024-07-06 10:10] LABS: BASOPHILS % (AUTO) 0.1 % (0.2-1.0); EOSINOPHILS % (AUTO) 0.2 % (0.9-2.9); HEMATOCRIT 34.5 % (42.0-54.0); HEMOGLOBIN 12.5 g/dL (13.5-18.0); LYMPHOCYTES # (AUTO) 0.9 X10^3/uL (1.3-2.9); LYMPHOCYTES % (AUTO) 10.9 % (21.0-51.0); MEAN CORPUSCULAR HEMOGLOBIN 34.5 pg (27.0-34.0); MEAN CORPUSCULAR HGB CONC 36.2 g/dL (33.0-35.0); MEAN CORPUSCULAR VOLUME 95.1 fL (80.0-100.0); MEAN PLATELET VOLUME 9.1 fL (7.4-11.0); MONOCYTES # (AUTO) 0.5 x10^3/uL (0.3-0.8); MONOCYTES % (AUTO) 6.3 % (0.0-13.0); NEUTROPHILS # (AUTO) 7.1 x10^3/uL (2.2-4.8); NEUTROPHILS % (AUTO) 82.5 % (42.0-75.0); PLATELET COUNT 63 X10^3/uL (150.0-450.0); RED BLOOD COUNT 3.63 X10^6/uL (4.7-6.0); WHITE BLOOD COUNT 8.6 X10^3/uL (3.6-10.0)
[2024-07-06 10:28] LABS: TSH (3RD GENERATION) 1.962 uIU/mL (0.358-3.74)
--- NOTE | 2024-07-06 10:34 | RAD ---
EXAM:Right hip two viewsHISTORY:FallCOMPARISON:None r.br.br identified. Proximal femur is intact. There is some cortical irregularity along the superior pubic ramus and in the area of the distal inferior pubic ramus. Nondisplaced fractures not entirely excluded. CT of the right hip recommended for further evaluationIMPRESSION:Intact right hip joint and right proximal femurCortical irregularity along the superior aspect of the proximal right superior pubic ramus and distal right inferior pubic ramus. Nondisplaced fractures not excluded. CT of the right hip recommended for further evaluation.THIS IS AN ELECTRONICALLY VERIFIED FINAL [id number]/06/2024 10:31 AM - Electronically signed by Miles Paulino MD
--- NOTE | 2024-07-06 10:36 | CT ---
EXAMINATION:HEAD (TRAUMA)HISTORY:head injury, fall;COMPARISON:None.TECHNIQUE:[facility] s noncontrast axial CT images of the brain. Images are reviewed in the axial imaging plane with reformatted sagittal and coronal images.The above CT scan was done with automated exposure control and the mA and kV was adjusted to obtain quality images according to patient size.FINDINGS:No evidence of acute intracranial hemorrhage, mass effect, or midline shift. Moderate diffuse brain parenchyma atrophy. Extensive areas of decreased density deep white matter adjacent to the lateral ventricles and centrum semiovale regions bilaterally without associated mass effect. Consider chronic ischemic white matter changes from small vessel disease or other cause of gliosis. Calvarium appears intact.IMPRESSION:Chronic appearing brain parenchymal changes.Scalp hematoma overlying the right superolateral calvarium.THIS IS AN ELECTRONICALLY VERIFIED FINAL [id number]/06/2024 10:32 AM - Electronically signed by Luisa Muñiz MD
--- NOTE | 2024-07-06 11:07 | CT ---
EXAM: CT cervical spine without contrast HISTORY: Fall, unable to get up TECHNIQUE: Axial noncontrast images with coronal and sagittal reformats. Dose reduction procedures were used wi th mA/kv adjusted for body size. COMPARISON: 02/05/22 FINDINGS: The alignment is normal. The vertebral bodies are of average height. Disc heights are preserved w ith the exception of narrowing at C7-T1. 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 Pedicles, transverse processes, and posterior elements are intact. There is spondylitic for aminal narrowing at C3-4 on the left. Remainder of the foramina are patent. Diffuse bilateral facet arthropathy is present. There is no evidence for fracture or dislocation. IMPRESSION: No evidence for cervical spine fracture or dislocation Disc space narrowing C7-T1 Spondylitic foraminal narrowing C3-4 on the left Diffuse bilateral facet arthropathy THIS IS AN ELECTRONICALLY VERIFIED FINAL REPORT 07/06/2024 10:59 AM - Electronically signed by Miles Paulino MD
--- NOTE | 2024-07-06 12:02 | CT ---
EXAM: CT right hip without contrast HISTORY: Right hip pain TECHNIQUE: Axial noncontrast images with coronal and sagittal reformats. Dose reduction procedures were used wi th mA/kv adjusted for body size. COMPARISON: Plain films same date FINDINGS: The visualized right sacrum and right SI joint are normal. There is a fracture of the medial right acetabulum corresponding to the cortical abnormality noted on plain films. This is best visualized on axial series 3, image 50 and coronal series 6 images 31 through 32. There is a fracture of the mi d right inferior pubic ramus also accounting for the cortical irregularity identified on the recent p jing films. Proximal femur is intact. No hip joint effusion is identified. No periarticular soft t issue abnormalities identified. IMPRESSION: Fracture of the medial right acetabulum as described above Fracture of the right inferior pubic ramus Intact proximal right femur THIS IS AN ELECTRONICALLY VERIFIED FINAL REPORT 07/06/2024 11:59 AM - Electronically signed by Miles Paulino MD
[2024-07-06] MEDS: NORCO 5/325 MG TAB PO ONE (12:35)
[2024-07-06] MEDS: TORADOL 15 MG VIAL IVP ONE (12:35)
[2024-07-06] MEDS ORDERED: TYLENOL 325 MG TAB PO PRN (12:55)
[2024-07-06] MEDS ORDERED: DILAUDID INJ IVP PRN (12:55)
[2024-07-06] MEDS ORDERED: MORPHINE SULFATE INJ 2 MG INJ IVP PRN (12:55)
[2024-07-06] MEDS: NS 1,000 ML IV 1,000 ML IV SCH (15:29)
[2024-07-06 16:07] VITALS: BMI 22.6
[2024-07-06] MEDS: KLONOPIN TAB 1 MG PO SCH (20:25)
[2024-07-06] MEDS: LIPITOR TAB 40 MG PO SCH (20:25)
[2024-07-06] MEDS: FLOMAX PO SCH (20:25)
--- NOTE | 2024-07-06 23:42 | RAD ---
EXAM:CHEST, 1 VIEWHISTORY:FALL;COMPARISON:08/23/2022 br.br.br.br unremarkable . The lungs are clear without focal infiltrate or effusion. The bony thorax is unremarkable.IMPRESSION:No acute cardiopulmonary disease.THIS IS AN ELECTRONICALLY VERIFIED FINAL [id number]/06/2024 11:39 PM - Electronically signed by Estevan Kulkarni MD
[2024-07-07 01:37] LABS: BILIRUBIN,URINE NEGATIVE (NEGATIVE); BLOOD/HEMOGLOBIN,URINE NEGATIVE (NEGATIVE); GLUCOSE, URINE NEGATIVE (NEGATIVE); KETONES,URINE NEGATIVE (NEGATIVE); LEUKOCYTE ESTERASE ,URINE NEGATIVE (NEGATIVE); NITRITES,URINE NEGATIVE (NEGATIVE); PROTEIN,URINE 1+ (NEGATIVE); UROBILINOGEN,URINE NORMAL (NORMAL)
[2024-07-07 01:42] LABS: APPEARANCE,URINE CLEAR (CLEAR); BACTERIA,URINE NEGATIVE /HPF (NEGATIVE); COLOR,URINE DARK YELLOW (YELLOW); RBC,URINE NONE SEEN /HPF (0-3); SQUAMOUS EPITHELIAL CELL,UR RARE /HPF (NEGATIVE)
[2024-07-07 04:40] LABS: BASOPHILS % (AUTO) 0.2 % (0.2-1.0); EOSINOPHILS # (AUTO) 0.1 x10^3/uL (0.0-0.2); EOSINOPHILS % (AUTO) 1.6 % (0.9-2.9); HEMATOCRIT 30.7 % (42.0-54.0); HEMOGLOBIN 10.8 g/dL (13.5-18.0); LYMPHOCYTES # (AUTO) 1.1 X10^3/uL (1.3-2.9); LYMPHOCYTES % (AUTO) 17.2 % (21.0-51.0); MEAN CORPUSCULAR HEMOGLOBIN 32.7 pg (27.0-34.0); MEAN CORPUSCULAR HGB CONC 35.2 g/dL (33.0-35.0); MEAN CORPUSCULAR VOLUME 92.7 fL (80.0-100.0); MONOCYTES # (AUTO) 0.5 x10^3/uL (0.3-0.8); MONOCYTES % (AUTO) 7.4 % (0.0-13.0); NEUTROPHILS # (AUTO) 4.9 x10^3/uL (2.2-4.8); NEUTROPHILS % (AUTO) 73.6 % (42.0-75.0); PLATELET COUNT 56 X10^3/uL (150.0-450.0); RED BLOOD COUNT 3.31 X10^6/uL (4.7-6.0); RED CELL DISTRIBUTION WIDTH 13.9 % (11.6-16.5); WHITE BLOOD COUNT 6.6 X10^3/uL (3.6-10.0)
[2024-07-07 04:47] LABS: ALANINE AMINOTRANSFERASE 25 Units/L (12-78); ALBUMIN 2.9 g/dL (3.4-5.0); ALKALINE PHOSPHATASE 94 Units/L (46-116); ASPARTATE AMINO TRANSFERASE 25 Units/L (15-37); BLOOD UREA NITROGEN 38 mg/dL (7-18); CALCIUM 8.4 mg/dL (8.5-10.1); CARBON DIOXIDE 28.8 mmol/L (21-32); CHLORIDE 106 mmol/L (98-107); COR CA(FOR HYPOALB) 9.3 mg/dL (8.5-10.1); CREATININE 1.39 mg/dL (0.70-1.30); GLUCOSE 99 mg/dL (65-99); MAGNESIUM 1.5 mg/dL (2.0-2.9); SODIUM 142 mmol/L (136-145); TOTAL PROTEIN 5.6 g/dL (6.4-8.2); eGFR NON BLACK RACES 51 (>60)
[2024-07-07] MEDS ORDERED: CONSULT PHARMACY - POTASSIUM & MAGNESIUM XX SCH (06:00)
[2024-07-07] MEDS: ALDACTONE TAB 25 MG PO SCH (08:42)
[2024-07-07] MEDS: ASPIRIN EC 81 MG PO SCH (08:42)
[2024-07-07] MEDS: MAG-OX TAB PO SCH (08:42)
[2024-07-07] MEDS: SINGULAIR TAB 10 MG PO SCH (08:42)
[2024-07-07] MEDS: PLAVIX PO SCH (08:42)
[2024-07-07] MEDS: SYNTHROID 100 mcg TAB PO SCH (08:43)
[2024-07-07] MEDS: ENTRESTO 24/26 MG TABLET PO SCH (08:45)
[2024-07-07] MEDS: NS 1,000 ML IV 1,000 ML with MAGNESIUM SULFATE 50% INJ VIAL 1 G IV SCH (09:29)
--- NOTE | 2024-07-07 09:48 | DR.H&P ---
H&P History & Physical for Day of: H&P Date: 07/07/24 Chief Complaint Chief Complaint: fall History of Present Illness History of Present Illness: Mr Bynum is a 84y/o male with a PMH of CAD s/p PCI, HTN, HLD, Hypothyroidism and Prostate cancer presented after he was found on the floor. Patient apparently had a fall at night and was not able to get up due to pain and stiffness in the right leg. Daughter states his BP had been slightly low. He called his daughter admitting officer and was brought to the ER for evaluation. He does not recall much about what happened. Denies any other symptoms. ER work up included Head CT which showed scalp hematoma, Hip CT showed right acetabulum fracture and right inf ramus fracture non-displaced. Dr Stephenson with Ortho was contacted and did not recommend any further intervention. UDS neg . Flu/COVID/RSV negative. Patient was admitted for pain management and physical therapy. He denies any pain this morning. He did not get any morphine overnight. Daughter states he seemed to be slightly delirious and was calling her overnight but does not recall doing that. Labs/imaging reviewed: -WBC 6.6 Hgb 10.8 BUN/Cr 38/1.39 Mag 1.5 -Imaging reviewed Plan: continue hydration, replace Mag. Monitor BP. Continue [place] prn, DC morphine. Resume home medications. Hold coreg and aldactone due to low BP. PT evaluation. SCDs. Monitor AM labs/imaging. Past Medical History Past Medical History: Anxiety, Coronary Artery Disease, Dyslipidemia, GERD, Hypertension and Hypothyroidism Additional Medical History: Cataracts, Prostate Cancer with Radiation in 2014, pulmonary fibrosis Past Surgical History Surgical History: Angioplasty/Stents, Joint Replacement, Ortho Surgery, Tonsillectomy and Other Additional Surgical History: Cataract surgery, Hemorrhoid surgery Family History Family Medical History: Coronary Artery Disease and Hypertension Social History Does patient currently use any type of tobacco product: No Have you used tobacco products in the last 12 months: No Type of Tobacco Use: None Does any household member use tobacco: No Alcohol Use: None Drug Use: None Medications Home Medications: Home Medications Medication Instructions Recorded Confirmed Type atorvastatin 40 mg tablet 1 tab PO QPM 08/23/22 07/06/24 History clonazepam 1 mg tablet 1 tab PO QPM 08/23/22 07/06/24 History levothyroxine 100 mcg tablet 1 tab PO QDAY 08/23/22 07/06/24 History montelukast 10 mg tablet 1 tab PO QDAY 08/23/22 07/06/24 History spironolactone 25 mg tablet 1 tab PO QDAY 08/23/22 07/06/24 History tamsulosin 0.4 mg capsule 1 cap PO QPM 08/23/22 07/06/24 History aspirin 81 mg tablet,delayed 81 mg PO DAILY 07/06/24 07/06/24 History release carvedilol 6.25 mg tablet 6.25 mg PO BID 07/06/24 07/06/24 History clopidogrel 75 mg tablet 75 mg PO QDAY 07/06/24 07/06/24 History sacubitril 24 mg-valsartan 26 mg 1 tab PO DAILY 07/06/24 07/06/24 History tablet (Entresto) terazosin 5 mg capsule 5 mg PO QPM 07/06/24 07/06/24 History Allergies Allergies Allergy/AdvReac Type Severity Reaction Status Date / Time No Known Drug Allergies Allergy Verified 05/18/23 23:08 [NKDA] Labs 07/07/24 04:15 07/07/24 04:15 Labs: Laboratory WBC 6.6 X10^3/uL (3.6-10.0) 07/07/24 04:15 RBC 3.31 X10^6/uL (4.7-6.0) L 07/07/24 04:15 Hgb 10.8 g/dL (13.5-18.0) L 07/07/24 04:15 Hct 30.7 % (42.0-54.0) L 07/07/24 04:15 MCV 92.7 fL (80.0-100.0) 07/07/24 04:15 MCH 32.7 pg (27.0-34.0) 07/07/24 04:15 MCHC 35.2 g/dL (33.0-35.0) H 07/07/24 04:15 RDW 13.9 % (11.6-16.5) 07/07/24 04:15 Plt Count 56 X10^3/uL (150.0-450.0) L 07/07/24 04:15 MPV 9.0 fL (7.4-11.0) 07/07/24 04:15 Neut % (Auto) 73.6 % (42.0-75.0) 07/07/24 04:15 Lymph % (Auto) 17.2 % (21.0-51.0) L 07/07/24 04:15 [place] % (Auto) 7.4 % (0.0-13.0) 07/07/24 04:15 Eos % (Auto) 1.6 % (0.9-2.9) 07/07/24 04:15 Baso % (Auto) 0.2 % (0.2-1.0) 07/07/24 04:15 Neut # (Auto) 4.9 x10^3/uL (2.2-4.8) H 07/07/24 04:15 Lymph # (Auto) 1.1 X10^3/uL (1.3-2.9) L 07/07/24 04:15 [place] # (Auto) 0.5 x10^3/uL (0.3-0.8) 07/07/24 04:15 Eos # (Auto) 0.1 x10^3/uL (0.0-0.2) 07/07/24 04:15 Baso # (Auto) 0.0 X10^3/uL (0.0-0.1) 07/07/24 04:15 Absolute Nucleated RBC 0.0 /100WBC 07/07/24 04:15 Sodium 142 mmol/L (136-145) 07/07/24 04:15 Corrected Sodium TNP 07/07/24 04:15 Potassium 4.0 mmol/L (3.5-5.1) 07/07/24 04:15 Chloride 106 mmol/L (98-107) 07/07/24 04:15 Carbon Dioxide 28.8 mmol/L (21-32) 07/07/24 04:15 BUN 38 mg/dL (7-18) H 07/07/24 04:15 Creatinine 1.39 mg/dL (0.70-1.30) H 07/07/24 04:15 Est GFR (MDRD) Af Amer > 60 (>60) 07/07/24 04:15 Est GFR (MDRD) Non-Af 51 (>60) L 07/07/24 04:15 Glucose 99 mg/dL (65-99) 07/07/24 04:15 Calcium 8.4 mg/dL (8.5-10.1) L 07/07/24 04:15 Corrected Calcium 9.3 mg/dL (8.5-10.1) 07/07/24 04:15 Magnesium 1.5 mg/dL (2.0-2.9) L 07/07/24 04:15 Total Bilirubin 2.60 mg/dL (0.2-1.0) H 07/07/24 04:15 AST 25 Units/L (15-37) 07/07/24 04:15 ALT 25 Units/L (12-78) 07/07/24 04:15 Alkaline Phosphatase 94 Units/L (46-116) 07/07/24 04:15 Creatine Kinase 146 Units/L (39-308) 07/06/24 09:20 Troponin I High Sens 9.9 ng/L (4.0-60.0) 07/06/24 09:20 Total Protein 5.6 g/dL (6.4-8.2) L 07/07/24 04:15 Albumin 2.9 g/dL (3.4-5.0) L 07/07/24 04:15 Globulin 2.7 g/dL (2.5-4.5) 07/07/24 04:15 Albumin/Globulin Ratio 1.1 Ratio (1.1-2.1) 07/07/24 04:15 TSH 3rd Generation 1.962 uIU/mL (0.358-3.74) 07/06/24 09:20 Specimen Type Clean catch urine 07/07/24 01:05 Urine Color Dark yellow (YELLOW) 07/07/24 01:05 Urine Appearance Clear (CLEAR) 07/07/24 01:05 Urine pH 5.0 (5.0 - 8.0) 07/07/24 01:05 Ur Specific [place] 1.015 (1.000-1.030) 07/07/24 01:05 Urine Protein 1+ (NEGATIVE) 07/07/24 01:05 Urine Glucose (UA) Negative (NEGATIVE) 07/07/24 01:05 Urine Ketones Negative (NEGATIVE) 07/07/24 01:05 Urine Blood Negative (NEGATIVE) 07/07/24 01:05 Urine Nitrite Negative (NEGATIVE) 07/07/24 01:05 Urine Bilirubin Negative (NEGATIVE) 07/07/24 01:05 Urine Urobilinogen Normal (NORMAL) 07/07/24 01:05 Ur Leukocyte Esterase Negative (NEGATIVE) 07/07/24 01:05 Urine RBC None seen /HPF (0-3) 07/07/24 01:05 Urine WBC 0-2 /HPF (0-5) 07/07/24 01:05 Ur Squamous Epith Cells Rare /HPF (NEGATIVE) 07/07/24 01:05 Urine Bacteria Negative /HPF (NEGATIVE) 07/07/24 01:05 Urine Mucus Few /HPF (NEGATIVE) 07/07/24 01:05 Ur Culture Indicated? No/not indicated 07/07/24 01:05 Urine Opiates Screen Negative (NEG=<300) 07/07/24 01:05 Urine Methadone Screen Negative (NEG=<300) 07/07/24 01:05 Ur Barbiturates Screen Negative (NEG=<200) 07/07/24 01:05 Ur Phencyclidine Scrn Negative (NEG=<25) 07/07/24 01:05 Ur Amphetamines Screen Negative (NEG=<1000) 07/07/24 01:05 U Benzodiazepines Scrn Negative (NEG=<200) 07/07/24 01:05 Urine Cocaine Screen Negative (NEG=<300) 07/07/24 01:05 U Marijuana (THC) Screen Negative (NEG=<50) 07/07/24 01:05 SARS-CoV-2 (PCR) Negative (NEGATIVE) 07/06/24 09:20 Influenza Type A (PCR) Negative (NEGATIVE) 07/06/24 09:20 Influenza Type B (PCR) Negative (NEGATIVE) 07/06/24 09:20 RSV (PCR) Negative (NEGATIVE) 07/06/24 09:20 Review of Systems Constitutional: Weakness Eyes: No Symptoms Reported ENT: No Symptoms Reported Respiratory: No Symptoms Reported Cardiovascular: No Symptoms Reported Gastrointestinal: No Symptoms Reported Genitourinary: No Symptoms Reported Musculoskeletal: Leg Pain Skin: No Symptoms Reported Neurological: Confusion Physical Exam Vital Signs: Vital Signs Temperature 97.5 F Temperature 98.3 F Pulse Rate [Left Radial] 76 Pulse Rate [Left Radial] 68 Respiratory Rate 18 Respiratory Rate 18 Blood Pressure [Right Arm] 108/60 Blood Pressure [Right Arm] 103/60 O2 Sat by Pulse Oximetry 92 O2 Sat by Pulse Oximetry 94 Oriented: Person and Place Eyes: Redness Respiratory: Diminished Throughout Cardiovascular: Normal Auscultation: Bowel Sounds: Normal Palpation: Normal Tenderness: Normal Skin: Normal Musculoskeletal: Leg and Motor Deficit Psychiatric: Normal Affect: Normal Speech Pattern: Clear and Appropriate Assessment/Plan (1) Fall: Qualifiers: Encounter type: initial encounter Qualified Code(s): W19.XXXA - Unspecified fall, initial encounter Status: Acute (2) Closed pelvic fracture: Qualifiers: Encounter type: initial encounter Pelvic bone location: acetabulum Sublocation of acetabulum: unspecified portion of acetabulum Fracture a lignment: nondisplaced Laterality: right Qualified Code(s): S32.401A - Unspecified fracture of right acetabulum, initial encounter for closed fracture Status: Acute (3) Acute hypotension: Status: Acute (4) Hypomagnesemia: Status: Acute (5) TRISTIAN (acute kidney injury): Status: Acute (6) Generalized weakness: Status: Acute (7) Hypertension: Qualifiers: Hypertension type: essential hypertension Hypertension goal: less than 140/90 Qualified Code(s): I10 - Essential (primary) hypertension Status: Chronic (8) Hyperlipidemia: Qualifiers: Hyperlipidemia type: Mixed hyperlipidemia Qualified Code(s): E78.2 - Mixed hyperlipidemia Status: Chronic (9) History of prostate cancer: Status: Chronic (10) Hypothyroidism: Qualifiers: Hypothyroidism type: acquired Qualified Code(s): E03.9 - Hypothyroidism, unspecified Status: Chronic Review H&P Reviewed: Yes Patient was examined?: Yes
[2024-07-07 15:15] LABS: BILIRUBIN,URINE NEGATIVE (NEGATIVE); BLOOD/HEMOGLOBIN,URINE 1+ (NEGATIVE); GLUCOSE, URINE NEGATIVE (NEGATIVE); KETONES,URINE NEGATIVE (NEGATIVE); LEUKOCYTE ESTERASE ,URINE NEGATIVE (NEGATIVE); NITRITES,URINE NEGATIVE (NEGATIVE); PROTEIN,URINE 1+ (NEGATIVE); UROBILINOGEN,URINE NORMAL (NORMAL)
[2024-07-07 15:17] LABS: APPEARANCE,URINE CLEAR (CLEAR); COLOR,URINE YELLOW (YELLOW)
[2024-07-07 15:24] LABS: BACTERIA,URINE TRACE /HPF (NEGATIVE); RBC,URINE 0-2 /HPF (0-3); SQUAMOUS EPITHELIAL CELL,UR RARE /HPF (NEGATIVE)
[2024-07-08 04:41] LABS: BASOPHILS % (AUTO) 0.3 % (0.2-1.0); EOSINOPHILS # (AUTO) 0.2 x10^3/uL (0.0-0.2); EOSINOPHILS % (AUTO) 2.7 % (0.9-2.9); HEMATOCRIT 31.2 % (42.0-54.0); HEMOGLOBIN 10.9 g/dL (13.5-18.0); LYMPHOCYTES # (AUTO) 1.4 X10^3/uL (1.3-2.9); LYMPHOCYTES % (AUTO) 20.9 % (21.0-51.0); MEAN CORPUSCULAR VOLUME 91.6 fL (80.0-100.0); MEAN PLATELET VOLUME 8.5 fL (7.4-11.0); MONOCYTES # (AUTO) 0.7 x10^3/uL (0.3-0.8); MONOCYTES % (AUTO) 10.4 % (0.0-13.0); NEUTROPHILS # (AUTO) 4.5 x10^3/uL (2.2-4.8); NEUTROPHILS % (AUTO) 65.7 % (42.0-75.0); PLATELET COUNT 62 X10^3/uL (150.0-450.0); RED BLOOD COUNT 3.41 X10^6/uL (4.7-6.0); RED CELL DISTRIBUTION WIDTH 14.3 % (11.6-16.5); WHITE BLOOD COUNT 6.8 X10^3/uL (3.6-10.0)
[2024-07-08 04:49] LABS: ALANINE AMINOTRANSFERASE 23 Units/L (12-78); ALBUMIN 2.6 g/dL (3.4-5.0); ALKALINE PHOSPHATASE 103 Units/L (46-116); ASPARTATE AMINO TRANSFERASE 28 Units/L (15-37); BLOOD UREA NITROGEN 28 mg/dL (7-18); CALCIUM 8.3 mg/dL (8.5-10.1); CARBON DIOXIDE 28.2 mmol/L (21-32); CHLORIDE 109 mmol/L (98-107); COR CA(FOR HYPOALB) 9.4 mg/dL (8.5-10.1); CREATININE 0.96 mg/dL (0.70-1.30); GLUCOSE 109 mg/dL (65-99); MAGNESIUM 1.7 mg/dL (2.0-2.9); SODIUM 142 mmol/L (136-145); TOTAL PROTEIN 5.4 g/dL (6.4-8.2); eGFR NON BLACK RACES > 60 (>60)
[2024-07-08] MEDS ORDERED: CONSULT PHARMACY - POTASSIUM & MAGNESIUM XX SCH (07:00)
[2024-07-08] MEDS: MAG-OX TAB PO SCH (08:35)
--- NOTE | 2024-07-08 12:02 | PCM.PROG ---
Progress Note Progress Note for Day of Date of Exam: 07/08/24 Subjective Subjective: Patient seen at bedside, no acute events overnight. He is doing better. Yesterday, he was noted to be orthostatic, BP declined with standing up. He did work with PT a little bit. He states he has been feeling dizzy at times especially at night when he gets up to go to the bathroom for the past few weeks. He is currently being treated for a fall causing pelvic fracture, dehydration and weakness. Davis was placed yesterday as patient was not able to void. He has had goof UOP. UA negative for infection. Patient does see cardio, was scheduled to have echo done the same day he was admitted. He reports eating better. Labs/imaging reviewed: -WBC 6.8 Hgb 10.9 Mag 1.7 BUN/Cr -UA negative Plan: repeat orthostatic vitals, continue hydration. Replace electrolytes as per protocol. PT/OT as tolerated. Advised patient to sit on the side of the bed or recliner today. Will order carotid US. Reviewed patient's medicines, he does take flomax and clonazepam at night that could cause dizziness but these are not new medicines and patient has been taking them for years. Monitor AM labs/imaging. Past Medical Family Social History Allergies: Allergies No Known Drug Allergies [NKDA] Allergy (Verified 05/18/23 23:08) Vital Signs and I&O's Vital Signs: Vital Signs Temperature 97.6 F Pulse Rate [Brachial] 78 Pulse Rate [Brachial] 84 Pulse Rate [Brachial] 67 Pulse Rate [Brachial] 70 Respiratory Rate 19 Blood Pressure [Right Arm] 122/71 Blood Pressure [Right Arm] 123/69 Blood Pressure [Right Arm] 114/67 Blood Pressure [Left Arm] 125/60 O2 Sat by Pulse Oximetry 94 Intake and Output: Intake & Output 07/05/24 07/06/24 07/07/24 07/08/24 23:59 23:59 23:59 23:59 Intake Total 360 / 360 2374 / 2374 414 / 414 Output Total 500 / 500 600 / 600 900 / 900 Balance -140 / -140 1774 / 1774 -486 / -486 Physical Exam Oriented: Person and Place Nose: Normal Respiratory: Normal Cardiovascular: Normal Auscultation: Bowel Sounds: Normal Palpation: Normal Tenderness: Normal Skin: Normal Musculoskeletal: Leg and Motor Deficit Psychiatric: Normal Affect: Normal Speech Pattern: Clear Laboratory and Diagnostics 07/08/24 04:25 07/08/24 04:25 Labs: Laboratory WBC 6.8 X10^3/uL (3.6-10.0) 07/08/24 04:25 RBC 3.41 X10^6/uL (4.7-6.0) L 07/08/24 04:25 Hgb 10.9 g/dL (13.5-18.0) L 07/08/24 04:25 Hct 31.2 % (42.0-54.0) L 07/08/24 04:25 MCV 91.6 fL (80.0-100.0) 07/08/24 04:25 MCH 32.0 pg (27.0-34.0) 07/08/24 04:25 MCHC 35.0 g/dL (33.0-35.0) 07/08/24 04:25 RDW 14.3 % (11.6-16.5) 07/08/24 04:25 Plt Count 62 X10^3/uL (150.0-450.0) L 07/08/24 04:25 MPV 8.5 fL (7.4-11.0) 07/08/24 04:25 Neut % (Auto) 65.7 % (42.0-75.0) 07/08/24 04:25 Lymph % (Auto) 20.9 % (21.0-51.0) L 07/08/24 04:25 [place] % (Auto) 10.4 % (0.0-13.0) 07/08/24 04:25 Eos % (Auto) 2.7 % (0.9-2.9) 07/08/24 04:25 Baso % (Auto) 0.3 % (0.2-1.0) 07/08/24 04:25 Neut # (Auto) 4.5 x10^3/uL (2.2-4.8) 07/08/24 04:25 Lymph # (Auto) 1.4 X10^3/uL (1.3-2.9) 07/08/24 04:25 [place] # (Auto) 0.7 x10^3/uL (0.3-0.8) 07/08/24 04:25 Eos # (Auto) 0.2 x10^3/uL (0.0-0.2) 07/08/24 04:25 Baso # (Auto) 0.0 X10^3/uL (0.0-0.1) 07/08/24 04:25 Absolute Nucleated RBC 0.0 /100WBC 07/08/24 04:25 Sodium 142 mmol/L (136-145) 07/08/24 04:25 Corrected Sodium TNP 07/08/24 04:25 Potassium 4.0 mmol/L (3.5-5.1) 07/08/24 04:25 Chloride 109 mmol/L (98-107) H 07/08/24 04:25 Carbon Dioxide 28.2 mmol/L (21-32) 07/08/24 04:25 BUN 28 mg/dL (7-18) H 07/08/24 04:25 Creatinine 0.96 mg/dL (0.70-1.30) 07/08/24 04:25 Est GFR (MDRD) Af Amer > 60 (>60) 07/08/24 04:25 Est GFR (MDRD) Non-Af > 60 (>60) 07/08/24 04:25 Glucose 109 mg/dL (65-99) H 07/08/24 04:25 Calcium 8.3 mg/dL (8.5-10.1) L 07/08/24 04:25 Corrected Calcium 9.4 mg/dL (8.5-10.1) 07/08/24 04:25 Magnesium 1.7 mg/dL (2.0-2.9) L 07/08/24 04:25 Total Bilirubin 2.20 mg/dL (0.2-1.0) H 07/08/24 04:25 AST 28 Units/L (15-37) 07/08/24 04:25 ALT 23 Units/L (12-78) 07/08/24 04:25 Alkaline Phosphatase 103 Units/L (46-116) 07/08/24 04:25 Creatine Kinase 146 Units/L (39-308) 07/06/24 09:20 Troponin I High Sens 9.9 ng/L (4.0-60.0) 07/06/24 09:20 Total Protein 5.4 g/dL (6.4-8.2) L 07/08/24 04:25 Albumin 2.6 g/dL (3.4-5.0) L 07/08/24 04:25 Globulin 2.8 g/dL (2.5-4.5) 07/08/24 04:25 Albumin/Globulin Ratio 0.9 Ratio (1.1-2.1) L 07/08/24 04:25 TSH 3rd Generation 1.962 uIU/mL (0.358-3.74) 07/06/24 09:20 Specimen Type Clean catch urine 07/07/24 14:50 Urine Color Yellow (YELLOW) 07/07/24 14:50 Urine Appearance Clear (CLEAR) 07/07/24 14:50 Urine pH 6.0 (5.0 - 8.0) 07/07/24 14:50 Ur Specific [place] 1.020 (1.000-1.030) 07/07/24 14:50 Urine Protein 1+ (NEGATIVE) 07/07/24 14:50 Urine Glucose (UA) Negative (NEGATIVE) 07/07/24 14:50 Urine Ketones Negative (NEGATIVE) 07/07/24 14:50 Urine Blood 1+ (NEGATIVE) 07/07/24 14:50 Urine Nitrite Negative (NEGATIVE) 07/07/24 14:50 Urine Bilirubin Negative (NEGATIVE) 07/07/24 14:50 Urine Urobilinogen Normal (NORMAL) 07/07/24 14:50 Ur Leukocyte Esterase Negative (NEGATIVE) 07/07/24 14:50 Urine RBC 0-2 /HPF (0-3) 07/07/24 14:50 Urine WBC None seen /HPF (0-5) 07/07/24 14:50 Ur Squamous Epith Cells Rare /HPF (NEGATIVE) 07/07/24 14:50 Urine Bacteria Trace /HPF (NEGATIVE) 07/07/24 14:50 Urine Mucus Few /HPF (NEGATIVE) 07/07/24 01:05 Ur Culture Indicated? No/not indicated 07/07/24 14:50 Urine Opiates Screen Negative (NEG=<300) 07/07/24 01:05 Urine Methadone Screen Negative (NEG=<300) 07/07/24 01:05 Ur Barbiturates Screen Negative (NEG=<200) 07/07/24 01:05 Ur Phencyclidine Scrn Negative (NEG=<25) 07/07/24 01:05 Ur Amphetamines Screen Negative (NEG=<1000) 07/07/24 01:05 U Benzodiazepines Scrn Negative (NEG=<200) 07/07/24 01:05 Urine Cocaine Screen Negative (NEG=<300) 07/07/24 01:05 U Marijuana (THC) Screen Negative (NEG=<50) 07/07/24 01:05 SARS-CoV-2 (PCR) Negative (NEGATIVE) 07/06/24 09:20 Influenza Type A (PCR) Negative (NEGATIVE) 07/06/24 09:20 Influenza Type B (PCR) Negative (NEGATIVE) 07/06/24 09:20 RSV (PCR) Negative (NEGATIVE) 07/06/24 09:20 Plan (1) Orthostatic hypotension: Status: Acute (2) Dizziness: Status: Acute (3) Fall: Status: Acute Qualifiers: Encounter type: initial encounter Qualified Code(s): W19.XXXA - Unspecified fall, initial encounter (4) Closed pelvic fracture: Status: Acute Qualifiers: Encounter type: initial encounter Fracture alignment: nondisplaced Laterality: right Pelvic bone location: acetabulum Sublocation of acetabulum: unspecified portion of acetabulum Qualified Code(s): S32.401A - Unspecified fracture of right acetabulum, initial encounter for closed fracture (5) Acute hypotension: Status: Acute (6) Hypomagnesemia: Status: Acute (7) TRISTIAN (acute kidney injury): Status: Acute (8) Generalized weakness: Status: Acute (9) Hypertension: Status: Chronic Qualifiers: Hypertension type: essential hypertension Hypertension goal: less than 140/90 Qualified Code(s): I10 - Essential (primary) hypertension (10) Hyperlipidemia: Status: Chronic Qualifiers: Hyperlipidemia type: Mixed hyperlipidemia Qualified Code(s): E78.2 - Mixed hyperlipidemia (11) History of prostate cancer: Status: Chronic (12) Hypothyroidism: Status: Chronic Qualifiers: Hypothyroidism type: acquired Qualified Code(s): E03.9 - Hypothyroidism, unspecified
[2024-07-08] MEDS: COLACE CAP 100 MG PO SCH (20:34)
[2024-07-09 04:31] LABS: BASOPHILS % (AUTO) 0.4 % (0.2-1.0); EOSINOPHILS # (AUTO) 0.2 x10^3/uL (0.0-0.2); EOSINOPHILS % (AUTO) 2.5 % (0.9-2.9); HEMATOCRIT 33.8 % (42.0-54.0); LYMPHOCYTES # (AUTO) 1.4 X10^3/uL (1.3-2.9); LYMPHOCYTES % (AUTO) 17.1 % (21.0-51.0); MEAN CORPUSCULAR HEMOGLOBIN 32.1 pg (27.0-34.0); MEAN CORPUSCULAR HGB CONC 35.3 g/dL (33.0-35.0); MEAN CORPUSCULAR VOLUME 90.8 fL (80.0-100.0); MEAN PLATELET VOLUME 8.3 fL (7.4-11.0); MONOCYTES # (AUTO) 0.8 x10^3/uL (0.3-0.8); NEUTROPHILS # (AUTO) 5.5 x10^3/uL (2.2-4.8); PLATELET COUNT 83 X10^3/uL (150.0-450.0); RED BLOOD COUNT 3.73 X10^6/uL (4.7-6.0); RED CELL DISTRIBUTION WIDTH 14.1 % (11.6-16.5); WHITE BLOOD COUNT 7.9 X10^3/uL (3.6-10.0)
[2024-07-09 04:43] LABS: ALANINE AMINOTRANSFERASE 24 Units/L (12-78); ALBUMIN 2.7 g/dL (3.4-5.0); ALKALINE PHOSPHATASE 104 Units/L (46-116); ASPARTATE AMINO TRANSFERASE 29 Units/L (15-37); BLOOD UREA NITROGEN 17 mg/dL (7-18); CALCIUM 8.5 mg/dL (8.5-10.1); CARBON DIOXIDE 29.2 mmol/L (21-32); CHLORIDE 107 mmol/L (98-107); COR CA(FOR HYPOALB) 9.5 mg/dL (8.5-10.1); COR NA(FOR HYPERGLY) 141 mmol/L (136-145); GLUCOSE 111 mg/dL (65-99); MAGNESIUM 1.9 mg/dL (2.0-2.9); POTASSIUM 4.2 mmol/L (3.5-5.1); SODIUM 141 mmol/L (136-145); TOTAL PROTEIN 5.7 g/dL (6.4-8.2); eGFR NON BLACK RACES > 60 (>60)
--- NOTE | 2024-07-09 08:25 | VAS ---
EXAM:CAROTID USHISTORY:Dizzy. Confusion.COMPARISON:12/12/2021.TECHNIQUE: r left carotid arterial system were obtained. The vertebral arterial system was evaluated as well.FINDINGS:Nonocclusive color flow Doppler is seen throughout the right and left carotid arterial system.There is moderate atherosclerotic plaque formation of the bilateral carotid bulbs and proximal ICA's with associated intimal thickening, but without evidence for high-grade stenosis (>70%) or occlusion of the carotid arteries.The right and left vertebral artery demonstrate antegrade flow.There is patent flow within the right and left external carotid arteries.Peak right ICA velocity: 68 centimeter/seconds.Peak right CCA velocity: 64 centimeter/seconds.Right ICA to CCA ratio: 1.06.Peak left ICA velocity: 57 centimeter/seconds.Peak left CCA velocity: 67 centimeter/seconds.Left ICA to CCA ratio: 0.85.IMPRESSION:1. No hemodynamically significant carotid artery stenosis is seen.2. Bilateral CCA and proximal ICA atherosclerosis.3. Antegrade vertebral arterial flow seen bilaterally.THIS IS AN ELECTRONICALLY VERIFIED FINAL [id number]/09/2024 8:21 AM - Electronically signed by Benjamin Hernandez MD
--- NOTE | 2024-07-09 12:39 | NOTE.SOAP ---
Soap Note Note for Day of Date of Exam: 07/09/24 Subjective Data Subjective Data: Patient seen for a.m. rounds with nurse and techs at bedside. Patient denies any acute issues. Reports his pain is well-controlled. He is also pleasantly confused. Objective Data Objective Data: WD, WN, elderly male in NAD. Head NCAT. Hearing intact conversation. Heart regular rate and rhythm. Lungs are clear. Speech is clear. Bowel sounds present. Limited range of motion of right leg. Assessment Assessment: 1. Close pelvic fracture of the right acetabulum and inferior rami due to a fall from orthostatic hypotension. Continue pain control. PT/OT as tolerated. Discharge home versus to subacute rehab after conversation with gita navarrete. 2. TRISTIAN with hypomagnesemia. Continue fluids via p.o. and IV routes as needed. Electrolyte replacement. 3. Hypertension. Resume home meds as blood pressure has improved. 4. Acquired hypothyroidism. Continue Synthroid.
[2024-07-09] MEDS: ALPRAZOLAM ODT PO NR (15:30)
[2024-07-09] MEDS: NORCO 5/325 MG TAB PO PRN (23:10)
[2024-07-10 06:01] LABS: BASOPHILS % (AUTO) 0.3 % (0.2-1.0); EOSINOPHILS # (AUTO) 0.1 x10^3/uL (0.0-0.2); EOSINOPHILS % (AUTO) 1.5 % (0.9-2.9); HEMATOCRIT 32.7 % (42.0-54.0); HEMOGLOBIN 11.5 g/dL (13.5-18.0); LYMPHOCYTES # (AUTO) 1.7 X10^3/uL (1.3-2.9); LYMPHOCYTES % (AUTO) 22.4 % (21.0-51.0); MEAN CORPUSCULAR HEMOGLOBIN 31.9 pg (27.0-34.0); MEAN CORPUSCULAR HGB CONC 35.1 g/dL (33.0-35.0); MEAN PLATELET VOLUME 8.1 fL (7.4-11.0); MONOCYTES # (AUTO) 0.8 x10^3/uL (0.3-0.8); MONOCYTES % (AUTO) 10.6 % (0.0-13.0); NEUTROPHILS # (AUTO) 4.9 x10^3/uL (2.2-4.8); NEUTROPHILS % (AUTO) 65.2 % (42.0-75.0); PLATELET COUNT 87 X10^3/uL (150.0-450.0); RED BLOOD COUNT 3.59 X10^6/uL (4.7-6.0); RED CELL DISTRIBUTION WIDTH 13.9 % (11.6-16.5); WHITE BLOOD COUNT 7.6 X10^3/uL (3.6-10.0)
[2024-07-10 06:27] LABS: ALANINE AMINOTRANSFERASE 24 Units/L (12-78); ALBUMIN 2.6 g/dL (3.4-5.0); ALKALINE PHOSPHATASE 101 Units/L (46-116); ASPARTATE AMINO TRANSFERASE 35 Units/L (15-37); BLOOD UREA NITROGEN 19 mg/dL (7-18); CALCIUM 8.3 mg/dL (8.5-10.1); CARBON DIOXIDE 27.1 mmol/L (21-32); CHLORIDE 107 mmol/L (98-107); COR CA(FOR HYPOALB) 9.4 mg/dL (8.5-10.1); CREATININE 0.89 mg/dL (0.70-1.30); GLUCOSE 96 mg/dL (65-99); POTASSIUM 4.2 mmol/L (3.5-5.1); SODIUM 140 mmol/L (136-145); TOTAL PROTEIN 5.6 g/dL (6.4-8.2); eGFR NON BLACK RACES > 60 (>60)
--- NOTE | 2024-07-10 18:40 | NOTE.SOAP ---
Soap Note Note for Day of Date of Exam: 07/10/24 Subjective Data Subjective Data: Patient seen for morning rounds with nurse at bedside. Family still considering versus inpatient rehab. Nurses report that he has been pleasantly confused the entire time. No overnight events. Objective Data Objective Data: WD, WN male in NAD. Head NCAT. Heart regular rate and rhythm. Lungs are clear. Bowel sounds present. Pleasantly confused Assessment Assessment: 1. Close pelvic fracture of the right acetabulum and inferior rami due to a fall from orthostatic hypotension. Continue pain control. PT/OT as tolerated. Discharge home versus to subacute rehab after conversation with family and CM. 2. TRISTIAN with hypomagnesemia. Resolved. Monitor for changes daily while inpt. 3. Hypertension-resolved. 4. Acquired hypothyroidism. Continue Synthroid.
[2024-07-11] MEDS: BUTT CREAM (COMPOUND) TOP PRN (03:53)
[2024-07-11] MEDS: MILK OF MAGNESIA PO PRN (21:56)
[2024-07-12 06:19] LABS: BASOPHILS % (AUTO) 0.3 % (0.2-1.0); EOSINOPHILS # (AUTO) 0.1 x10^3/uL (0.0-0.2); HEMOGLOBIN 10.3 g/dL (13.5-18.0); LYMPHOCYTES # (AUTO) 1.8 X10^3/uL (1.3-2.9); LYMPHOCYTES % (AUTO) 26.8 % (21.0-51.0); MEAN CORPUSCULAR HEMOGLOBIN 32.5 pg (27.0-34.0); MEAN CORPUSCULAR HGB CONC 35.6 g/dL (33.0-35.0); MEAN CORPUSCULAR VOLUME 91.3 fL (80.0-100.0); MEAN PLATELET VOLUME 8.1 fL (7.4-11.0); MONOCYTES # (AUTO) 0.9 x10^3/uL (0.3-0.8); MONOCYTES % (AUTO) 13.2 % (0.0-13.0); NEUTROPHILS # (AUTO) 3.9 x10^3/uL (2.2-4.8); NEUTROPHILS % (AUTO) 57.7 % (42.0-75.0); PLATELET COUNT 95 X10^3/uL (150.0-450.0); RED BLOOD COUNT 3.18 X10^6/uL (4.7-6.0); RED CELL DISTRIBUTION WIDTH 14.1 % (11.6-16.5); WHITE BLOOD COUNT 6.8 X10^3/uL (3.6-10.0)
[2024-07-12 06:38] LABS: ALANINE AMINOTRANSFERASE 28 Units/L (12-78); ALBUMIN 2.2 g/dL (3.4-5.0); ALKALINE PHOSPHATASE 102 Units/L (46-116); ASPARTATE AMINO TRANSFERASE 36 Units/L (15-37); BLOOD UREA NITROGEN 23 mg/dL (7-18); CALCIUM 8.1 mg/dL (8.5-10.1); CARBON DIOXIDE 25.3 mmol/L (21-32); CHLORIDE 106 mmol/L (98-107); COR CA(FOR HYPOALB) 9.5 mg/dL (8.5-10.1); CREATININE 0.92 mg/dL (0.70-1.30); GLUCOSE 90 mg/dL (65-99); POTASSIUM 4.2 mmol/L (3.5-5.1); SODIUM 138 mmol/L (136-145); TOTAL PROTEIN 5.2 g/dL (6.4-8.2); eGFR NON BLACK RACES > 60 (>60)
--- NOTE | 2024-07-12 07:32 | RAD ---
EXAMINATION:KNEE COMPLETE, RIGHTHISTORY:PT C/O OF PAIN IN RIGHT KNEE ; .COMPARISON STUDY:None.TECHNIQUE:Three views of the right kneeFINDINGS:Osteopenia and moderate tricompartmental osteoarthritic change. Calcium pyrophosphate deposition disease. There is no fracture, dislocation, or radiopaque foreign body. Prepatellar soft tissue swelling with joint effusion.. No osteolytic or osteoblastic lesions are present. 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 Prepatellar soft tissue swelling with joint effusionTHIS IS AN ELECTRONICALLY VERIFIED FINAL [id number]/12/2024 7:28 AM - Electronically signed by Ramesh Smith MD
--- NOTE | 2024-07-12 07:50 | RAD ---
EXAMINATION:SHOULDER, RIGHTHISTORY:PT C/O PAIN IN RIGHT SHOULDER ; .COMPARISON STUDY:None.TECHNIQUE:3 views of the right shoulder were obtained.FINDINGS:Osteoarthritic change and moderate to severe osteoarthritic changes along the glenohumeral joint and AC joint. High-riding shoulder suggesting chronic rotator cuff disease. There is no fracture or dislocation. The surrounding soft tissues are unremarkable. No osteolytic or osteoblastic lesions are noted. There is no radiopaque foreign body. Increased interstitial markings in the lungs.IMPRESSION:NO ACUTE BONY PROCESS.THIS IS AN ELECTRONICALLY VERIFIED FINAL [id number]/2024 7:47 AM - Electronically signed by Ramesh Smith MD
--- NOTE | 2024-07-12 08:51 | NOTE.SOAP ---
Soap Note Note for Day of Date of Exam: 07/11/24 Subjective Data Subjective Data: No overnight events. Getting out of bed to restroom and recliner. RIGHT knee and hip are aching and sore. Objective Data Objective Data: WD, WN male in NAD. Head NCAT. Hearing intact to conversation. Heart regular rate and rhythm. Lungs are clear. Bowel sounds present. Pleasantly confused Assessment Assessment: 1. Close pelvic fracture of the right acetabulum and inferior rami due to a fall from orthostatic hypotension. Continue pain control. PT/OT as tolerated. Discharge home versus to subacute rehab after conversation with family and CM. 2. TRISTIAN with hypomagnesemia. Resolved. Monitor for changes daily while inpt. 3. Hypotension-resolved (error on yesterday's chart, 07/10/24). 4. Acquired hypothyroidism. Continue Synthroid
--- NOTE | 2024-07-12 09:35 | PCM.PROG ---
Progress Note Progress Note for Day of Date of Exam: 07/12/24 Subjective Subjective: Patient seen at bedside, no acute events overnight. He is doing better. He denies any dizzy spells. Orthostatic vitals have improved. He is currently being treated for a fall causing pelvic fracture, dehydration and weakness. He has been working with PT. Labs/imaging reviewed: -WBC 6.8 Hgb 10.3 BUN/Cr 23/0.92 -UA negative -Carotid US: no significant findings Plan: Continue current treatment. Will DC IVF. Monitor BP. Fall precautions. Replace electrolytes as per protocol. PT/OT as tolerated. Discuss discharge planning with family, family prefers rehab placement or swing bed rehab. Past Medical Family Social History Allergies: Allergies No Known Drug Allergies [NKDA] Allergy (Verified 05/18/23 23:08) Vital Signs and I&O's Vital Signs: Vital Signs Temperature 98.3 F Temperature 97.6 F Pulse Rate [Brachial] 84 Pulse Rate [Brachial] 66 Respiratory Rate 18 Respiratory Rate 18 Respiratory Rate 20 Blood Pressure [Right Arm] 103/64 Blood Pressure [Right Arm] 108/56 O2 Sat by Pulse Oximetry 94 O2 Sat by Pulse Oximetry 99 Intake and Output: Intake & Output 07/09/24 07/10/24 07/11/24 07/12/24 23:59 23:59 23:59 23:59 Intake Total 1470 / 1470 2795 / 2795 2191 / 2191 Output Total 2100 / 2100 1151 / 1151 1450 / 1450 350 / 350 Balance -630 / -630 1644 / 1644 741 / 741 -350 / -350 Physical Exam Oriented: Person and Place Eyes: Normal Nose: Normal Respiratory: Normal Cardiovascular: Normal Auscultation: Bowel Sounds: Normal Palpation: Normal Tenderness: Normal Skin: Normal Musculoskeletal: Leg and Motor Deficit Psychiatric: Normal Affect: Normal Speech Pattern: Clear and Appropriate Laboratory and Diagnostics 07/12/24 05:20 07/12/24 05:20 Labs: Laboratory WBC 6.8 X10^3/uL (3.6-10.0) 07/12/24 05:20 RBC 3.18 X10^6/uL (4.7-6.0) L 07/12/24 05:20 Hgb 10.3 g/dL (13.5-18.0) L 07/12/24 05:20 Hct 29.0 % (42.0-54.0) L 07/12/24 05:20 MCV 91.3 fL (80.0-100.0) 07/12/24 05:20 MCH 32.5 pg (27.0-34.0) 07/12/24 05:20 MCHC 35.6 g/dL (33.0-35.0) H 07/12/24 05:20 RDW 14.1 % (11.6-16.5) 07/12/24 05:20 Plt Count 95 X10^3/uL (150.0-450.0) L 07/12/24 05:20 MPV 8.1 fL (7.4-11.0) 07/12/24 05:20 Neut % (Auto) 57.7 % (42.0-75.0) 07/12/24 05:20 Lymph % (Auto) 26.8 % (21.0-51.0) 07/12/24 05:20 [place] % (Auto) 13.2 % (0.0-13.0) H 07/12/24 05:20 Eos % (Auto) 2.0 % (0.9-2.9) 07/12/24 05:20 Baso % (Auto) 0.3 % (0.2-1.0) 07/12/24 05:20 Neut # (Auto) 3.9 x10^3/uL (2.2-4.8) 07/12/24 05:20 Lymph # (Auto) 1.8 X10^3/uL (1.3-2.9) 07/12/24 05:20 [place] # (Auto) 0.9 x10^3/uL (0.3-0.8) H 07/12/24 05:20 Eos # (Auto) 0.1 x10^3/uL (0.0-0.2) 07/12/24 05:20 Baso # (Auto) 0.0 X10^3/uL (0.0-0.1) 07/12/24 05:20 Absolute Nucleated RBC 0.0 /100WBC 07/12/24 05:20 Sodium 138 mmol/L (136-145) 07/12/24 05:20 Corrected Sodium TNP 07/12/24 05:20 Potassium 4.2 mmol/L (3.5-5.1) 07/12/24 05:20 Chloride 106 mmol/L (98-107) 07/12/24 05:20 Carbon Dioxide 25.3 mmol/L (21-32) 07/12/24 05:20 BUN 23 mg/dL (7-18) H 07/12/24 05:20 Creatinine 0.92 mg/dL (0.70-1.30) 07/12/24 05:20 Est GFR (MDRD) Af Amer > 60 (>60) 07/12/24 05:20 Est GFR (MDRD) Non-Af > 60 (>60) 07/12/24 05:20 Glucose 90 mg/dL (65-99) 07/12/24 05:20 Calcium 8.1 mg/dL (8.5-10.1) L 07/12/24 05:20 Corrected Calcium 9.5 mg/dL (8.5-10.1) 07/12/24 05:20 Magnesium 2.0 mg/dL (2.0-2.9) 07/10/24 05:44 Total Bilirubin 2.80 mg/dL (0.2-1.0) H 07/12/24 05:20 AST 36 Units/L (15-37) 07/12/24 05:20 ALT 28 Units/L (12-78) 07/12/24 05:20 Alkaline Phosphatase 102 Units/L (46-116) 07/12/24 05:20 Creatine Kinase 146 Units/L (39-308) 07/06/24 09:20 Troponin I High Sens 9.9 ng/L (4.0-60.0) 07/06/24 09:20 Total Protein 5.2 g/dL (6.4-8.2) L 07/12/24 05:20 Albumin 2.2 g/dL (3.4-5.0) L 07/12/24 05:20 Globulin 3.0 g/dL (2.5-4.5) 07/12/24 05:20 Albumin/Globulin Ratio 0.7 Ratio (1.1-2.1) L 07/12/24 05:20 TSH 3rd Generation 1.962 uIU/mL (0.358-3.74) 07/06/24 09:20 Specimen Type Clean catch urine 07/07/24 14:50 Urine Color Yellow (YELLOW) 07/07/24 14:50 Urine Appearance Clear (CLEAR) 07/07/24 14:50 Urine pH 6.0 (5.0 - 8.0) 07/07/24 14:50 Ur Specific [place] 1.020 (1.000-1.030) 07/07/24 14:50 Urine Protein 1+ (NEGATIVE) 07/07/24 14:50 Urine Glucose (UA) Negative (NEGATIVE) 07/07/24 14:50 Urine Ketones Negative (NEGATIVE) 07/07/24 14:50 Urine Blood 1+ (NEGATIVE) 07/07/24 14:50 Urine Nitrite Negative (NEGATIVE) 07/07/24 14:50 Urine Bilirubin Negative (NEGATIVE) 07/07/24 14:50 Urine Urobilinogen Normal (NORMAL) 07/07/24 14:50 Ur Leukocyte Esterase Negative (NEGATIVE) 07/07/24 14:50 Urine RBC 0-2 /HPF (0-3) 07/07/24 14:50 Urine WBC None seen /HPF (0-5) 07/07/24 14:50 Ur Squamous Epith Cells Rare /HPF (NEGATIVE) 07/07/24 14:50 Urine Bacteria Trace /HPF (NEGATIVE) 07/07/24 14:50 Urine Mucus Few /HPF (NEGATIVE) 07/07/24 01:05 Ur Culture Indicated? No/not indicated 07/07/24 14:50 Urine Opiates Screen Negative (NEG=<300) 07/07/24 01:05 Urine Methadone Screen Negative (NEG=<300) 07/07/24 01:05 Ur Barbiturates Screen Negative (NEG=<200) 07/07/24 01:05 Ur Phencyclidine Scrn Negative (NEG=<25) 07/07/24 01:05 Ur Amphetamines Screen Negative (NEG=<1000) 07/07/24 01:05 U Benzodiazepines Scrn Negative (NEG=<200) 07/07/24 01:05 Urine Cocaine Screen Negative (NEG=<300) 07/07/24 01:05 U Marijuana (THC) Screen Negative (NEG=<50) 07/07/24 01:05 SARS-CoV-2 (PCR) Negative (NEGATIVE) 07/06/24 09:20 Influenza Type A (PCR) Negative (NEGATIVE) 07/06/24 09:20 Influenza Type B (PCR) Negative (NEGATIVE) 07/06/24 09:20 RSV (PCR) Negative (NEGATIVE) 07/06/24 09:20 Plan (1) Orthostatic hypotension: Status: Acute (2) Fall: Status: Acute Qualifiers: Encounter type: initial encounter Qualified Code(s): W19.XXXA - Unspecified fall, initial encounter (3) Closed pelvic fracture: Status: Acute Qualifiers: Encounter type: initial encounter Fracture alignment: nondisplaced Laterality: right Pelvic bone location: acetabulum Sublocation of acetabulum: unspecified portion of acetabulum Qualified Code(s): S32.401A - Unspecified fracture of right acetabulum, initial encounter for closed fracture (4) Acute hypotension: Status: Acute (5) Hypomagnesemia: Status: Acute (6) TRISTIAN (acute kidney injury): Status: Acute (7) Generalized weakness: Status: Acute (8) Hypertension: Status: Chronic Qualifiers: Hypertension type: essential hypertension Hypertension goal: less than 140/90 Qualified Code(s): I10 - Essential (primary) hypertension (9) Hyperlipidemia: Status: Chronic Qualifiers: Hyperlipidemia type: Mixed hyperlipidemia Qualified Code(s): E78.2 - Mixed hyperlipidemia (10) History of prostate cancer: Status: Chronic (11) Hypothyroidism: Status: Chronic Qualifiers: Hypothyroidism type: acquired Qualified Code(s): E03.9 - Hypothyroidism, unspecified
[2024-07-13 05:41] LABS: ALANINE AMINOTRANSFERASE 40 Units/L (12-78); ALBUMIN 2.2 g/dL (3.4-5.0); ALKALINE PHOSPHATASE 111 Units/L (46-116); ASPARTATE AMINO TRANSFERASE 50 Units/L (15-37); BLOOD UREA NITROGEN 19 mg/dL (7-18); CALCIUM 8.2 mg/dL (8.5-10.1); CARBON DIOXIDE 27.6 mmol/L (21-32); CHLORIDE 105 mmol/L (98-107); COR CA(FOR HYPOALB) 9.6 mg/dL (8.5-10.1); CREATININE 0.86 mg/dL (0.70-1.30); GLUCOSE 95 mg/dL (65-99); POTASSIUM 4.2 mmol/L (3.5-5.1); SODIUM 137 mmol/L (136-145); TOTAL PROTEIN 5.2 g/dL (6.4-8.2); eGFR NON BLACK RACES > 60 (>60)
[2024-07-13 05:42] LABS: BASOPHILS % (AUTO) 0.4 % (0.2-1.0); EOSINOPHILS # (AUTO) 0.2 x10^3/uL (0.0-0.2); EOSINOPHILS % (AUTO) 2.6 % (0.9-2.9); HEMATOCRIT 29.3 % (42.0-54.0); HEMOGLOBIN 10.5 g/dL (13.5-18.0); LYMPHOCYTES # (AUTO) 1.1 X10^3/uL (1.3-2.9); LYMPHOCYTES % (AUTO) 16.1 % (21.0-51.0); MEAN CORPUSCULAR HEMOGLOBIN 33.2 pg (27.0-34.0); MEAN CORPUSCULAR VOLUME 92.4 fL (80.0-100.0); MEAN PLATELET VOLUME 8.3 fL (7.4-11.0); MONOCYTES # (AUTO) 0.7 x10^3/uL (0.3-0.8); MONOCYTES % (AUTO) 11.2 % (0.0-13.0); NEUTROPHILS # (AUTO) 4.6 x10^3/uL (2.2-4.8); NEUTROPHILS % (AUTO) 69.7 % (42.0-75.0); PLATELET COUNT 110 X10^3/uL (150.0-450.0); RED BLOOD COUNT 3.17 X10^6/uL (4.7-6.0); RED CELL DISTRIBUTION WIDTH 13.6 % (11.6-16.5); WHITE BLOOD COUNT 6.6 X10^3/uL (3.6-10.0)
[2024-07-13 15:06] VITALS: BP 132/61; PULSE 60; RESP 18; TEMP 97.7; O2SAT 98
--- NOTE | 2024-07-14 10:08 | W.DIS.FURT ---
Summary of Discharge Discharge Summary of Date Date of Exam: 07/13/24 Admission Date Date of Admission: 07/06/24 Admission Diagnosis Patient Problems (Updated 07/08/24 @ 12:01 by Abby James MD) Fall (Acute) W19.XXXA Acute hypotension (Acute) I95.9 Closed pelvic fracture (Acute) S32.9XXA Contusion of scalp, initial encounter (Acute) S00.03XA Hospital Course: Mr Bynum is a 84y/o male with a PMH of CAD s/p PCI, HTN, HLD, Hypothyroidism and Prostate cancer presented after he was found on the floor. Patient apparently had a fall at night and was not able to get up due to pain and stiffness in the right leg. Daughter states his BP had been slightly low. He called his daughter rn charge and was brought to the ER for evaluation. He does not recall much about what happened. Denies any other symptoms. ER work up included Head CT which showed scalp hematoma, Hip CT showed right acetabulum fracture and right inf ramus fracture non-displaced. Dr Stephenson with Ortho was contacted and did not recommend any further intervention. UDS neg. Flu/COVID/RSV negative. Patient was admitted for pain management and physical therapy. His labs were monitored daily and electrolytes were replaced as needed. His BP was noted to be low so aldactone was held. He did have orthostatic hypotension which was treated with fluids. Patient reports feeling dizzy at times when standing up. Carotid US was also done which did not show anything significant. He was working with PT and was advised rehab placement. Patient will be admitted as swing bed for PT/OT. Vital Signs: Vital Signs (72 hours) 07/10/24 11:56 07/10/24 11:00 07/10/24 11:01 Temperature 98.9 F Pulse Rate [Brachial] 75 77 80 Respiratory Rate 18 Blood Pressure [Left Arm] 126/68 136/64 128/67 Blood Pressure [Right Arm] O2 Sat by Pulse Oximetry 96 Oxygen Delivery Method Room Air 07/10/24 11:02 07/10/24 16:00 07/10/24 19:00 Temperature 99.9 F H Pulse Rate [Brachial] 94 H 78 Respiratory Rate 20 Blood Pressure [Left Arm] 92/55 104/59 Blood Pressure [Right Arm] O2 Sat by Pulse Oximetry 96 Oxygen Delivery Method Room Air Room Air 07/10/24 20:00 07/10/24 20:51 07/10/24 21:51 Temperature 98.9 F Pulse Rate [Brachial] 74 Respiratory Rate 19 20 20 Blood Pressure [Left Arm] 115/60 Blood Pressure [Right Arm] O2 Sat by Pulse Oximetry 97 Oxygen Delivery Method Room Air 07/11/24 00:00 07/11/24 04:00 07/11/24 08:00 Temperature 98.4 F 97.6 F 98.3 F Pulse Rate [Brachial] 76 70 81 Respiratory Rate 20 18 19 Blood Pressure [Left Arm] 101/68 105/58 113/59 Blood Pressure [Right Arm] O2 Sat by Pulse Oximetry 94 L 96 96 Oxygen Delivery Method Room Air Room Air Room Air 07/11/24 07:00 07/11/24 12:00 07/11/24 18:16 Temperature 99.0 F Pulse Rate [Brachial] 82 Respiratory Rate 18 18 Blood Pressure [Left Arm] Blood Pressure [Right Arm] 135/65 O2 Sat by Pulse Oximetry 96 Oxygen Delivery Method Room Air Room Air 07/11/24 16:00 07/11/24 19:00 07/11/24 20:00 Temperature 99.3 F 99.0 F Pulse Rate [Brachial] 88 80 Respiratory Rate 19 17 Blood Pressure [Left Arm] 144/73 Blood Pressure [Right Arm] 107/57 O2 Sat by Pulse Oximetry 95 94 L Oxygen Delivery Method Room Air Room Air Room Air 07/11/24 19:16 07/12/24 00:00 07/12/24 01:13 Temperature 98.7 F Pulse Rate [Brachial] 68 Respiratory Rate 20 18 20 Blood Pressure [Left Arm] Blood Pressure [Right Arm] 98/57 O2 Sat by Pulse Oximetry 95 Oxygen Delivery Method Room Air 07/12/24 04:00 07/12/24 02:13 07/12/24 07:00 Temperature 97.6 F Pulse Rate [Brachial] 66 Respiratory Rate 18 20 Blood Pressure [Left Arm] Blood Pressure [Right Arm] 108/56 O2 Sat by Pulse Oximetry 99 Oxygen Delivery Method Room Air Room Air 07/12/24 08:00 07/12/24 12:00 07/12/24 16:00 Temperature 98.3 F 98.6 F 97.8 F Pulse Rate [Brachial] 84 82 80 Respiratory Rate 18 18 20 Blood Pressure [Left Arm] Blood Pressure [Right Arm] 103/64 140/67 112/62 O2 Sat by Pulse Oximetry 94 L 96 96 Oxygen Delivery Method Room Air Room Air Room Air 07/12/24 20:00 07/12/24 19:00 07/12/24 23:40 Temperature 97.6 F 98.4 F Pulse Rate [Brachial] 76 73 Respiratory Rate 16 18 Blood Pressure [Left Arm] Blood Pressure [Right Arm] 120/58 135/71 O2 Sat by Pulse Oximetry 97 97 Oxygen Delivery Method Room Air Room Air Room Air 07/13/24 04:00 07/13/24 07:00 07/13/24 08:00 Temperature 97.9 F 98.2 F Pulse Rate [Brachial] 75 52 L Respiratory Rate 18 17 Blood Pressure [Left Arm] Blood Pressure [Right Arm] 125/73 126/69 O2 Sat by Pulse Oximetry 93 L 96 Oxygen Delivery Method Room Air Room Air Room Air Labs: Laboratory Last Values WBC 6.6 X10^3/uL (3.6-10.0) 07/13/24 04:47 RBC 3.17 X10^6/uL (4.7-6.0) L 07/13/24 04:47 Hgb 10.5 g/dL (13.5-18.0) L 07/13/24 04:47 Hct 29.3 % (42.0-54.0) L 07/13/24 04:47 MCV 92.4 fL (80.0-100.0) 07/13/24 04:47 MCH 33.2 pg (27.0-34.0) 07/13/24 04:47 MCHC 36.0 g/dL (33.0-35.0) H 07/13/24 04:47 RDW 13.6 % (11.6-16.5) 07/13/24 04:47 Plt Count 110 X10^3/uL (150.0-450.0) L 07/13/24 04:47 MPV 8.3 fL (7.4-11.0) 07/13/24 04:47 Neut % (Auto) 69.7 % (42.0-75.0) 07/13/24 04:47 Lymph % (Auto) 16.1 % (21.0-51.0) L 07/13/24 04:47 [place] % (Auto) 11.2 % (0.0-13.0) 07/13/24 04:47 Eos % (Auto) 2.6 % (0.9-2.9) 07/13/24 04:47 Baso % (Auto) 0.4 % (0.2-1.0) 07/13/24 04:47 Neut # (Auto) 4.6 x10^3/uL (2.2-4.8) 07/13/24 04:47 Lymph # (Auto) 1.1 X10^3/uL (1.3-2.9) L 07/13/24 04:47 [place] # (Auto) 0.7 x10^3/uL (0.3-0.8) 07/13/24 04:47 Eos # (Auto) 0.2 x10^3/uL (0.0-0.2) 07/13/24 04:47 Baso # (Auto) 0.0 X10^3/uL (0.0-0.1) 07/13/24 04:47 Absolute Nucleated RBC 0.0 /100WBC 07/13/24 04:47 Sodium 137 mmol/L (136-145) 07/13/24 04:47 Corrected Sodium TNP 07/13/24 04:47 Potassium 4.2 mmol/L (3.5-5.1) 07/13/24 04:47 Chloride 105 mmol/L (98-107) 07/13/24 04:47 Carbon Dioxide 27.6 mmol/L (21-32) 07/13/24 04:47 BUN 19 mg/dL (7-18) H 07/13/24 04:47 Creatinine 0.86 mg/dL (0.70-1.30) 07/13/24 04:47 Est GFR (MDRD) Af Amer > 60 (>60) 07/13/24 04:47 Est GFR (MDRD) Non-Af > 60 (>60) 07/13/24 04:47 Glucose 95 mg/dL (65-99) 07/13/24 04:47 Calcium 8.2 mg/dL (8.5-10.1) L 07/13/24 04:47 Corrected Calcium 9.6 mg/dL (8.5-10.1) 07/13/24 04:47 Magnesium 2.0 mg/dL (2.0-2.9) 07/10/24 05:44 Total Bilirubin 2.60 mg/dL (0.2-1.0) H 07/13/24 04:47 AST 50 Units/L (15-37) H 07/13/24 04:47 ALT 40 Units/L (12-78) 07/13/24 04:47 Alkaline Phosphatase 111 Units/L (46-116) 07/13/24 04:47 Creatine Kinase 146 Units/L (39-308) 07/06/24 09:20 Troponin I High Sens 9.9 ng/L (4.0-60.0) 07/06/24 09:20 Total Protein 5.2 g/dL (6.4-8.2) L 07/13/24 04:47 Albumin 2.2 g/dL (3.4-5.0) L 07/13/24 04:47 Globulin 3.0 g/dL (2.5-4.5) 07/13/24 04:47 Albumin/Globulin Ratio 0.7 Ratio (1.1-2.1) L 07/13/24 04:47 TSH 3rd Generation 1.962 uIU/mL (0.358-3.74) 07/06/24 09:20 Specimen Type Clean catch urine 07/07/24 14:50 Urine Color Yellow (YELLOW) 07/07/24 14:50 Urine Appearance Clear (CLEAR) 07/07/24 14:50 Urine pH 6.0 (5.0 - 8.0) 07/07/24 14:50 Ur Specific [place] 1.020 (1.000-1.030) 07/07/24 14:50 Urine Protein 1+ (NEGATIVE) 07/07/24 14:50 Urine Glucose (UA) Negative (NEGATIVE) 07/07/24 14:50 Urine Ketones Negative (NEGATIVE) 07/07/24 14:50 Urine Blood 1+ (NEGATIVE) 07/07/24 14:50 Urine Nitrite Negative (NEGATIVE) 07/07/24 14:50 Urine Bilirubin Negative (NEGATIVE) 07/07/24 14:50 Urine Urobilinogen Normal (NORMAL) 07/07/24 14:50 Ur Leukocyte Esterase Negative (NEGATIVE) 07/07/24 14:50 Urine RBC 0-2 /HPF (0-3) 07/07/24 14:50 Urine WBC None seen /HPF (0-5) 07/07/24 14:50 Ur Squamous Epith Cells Rare /HPF (NEGATIVE) 07/07/24 14:50 Urine Bacteria Trace /HPF (NEGATIVE) 07/07/24 14:50 Urine Mucus Few /HPF (NEGATIVE) 07/07/24 01:05 Ur Culture Indicated? No/not indicated 07/07/24 14:50 Urine Opiates Screen Negative (NEG=<300) 07/07/24 01:05 Urine Methadone Screen Negative (NEG=<300) 07/07/24 01:05 Ur Barbiturates Screen Negative (NEG=<200) 07/07/24 01:05 Ur Phencyclidine Scrn Negative (NEG=<25) 07/07/24 01:05 Ur Amphetamines Screen Negative (NEG=<1000) 07/07/24 01:05 U Benzodiazepines Scrn Negative (NEG=<200) 07/07/24 01:05 Urine Cocaine Screen Negative (NEG=<300) 07/07/24 01:05 U Marijuana (THC) Screen Negative (NEG=<50) 07/07/24 01:05 SARS-CoV-2 (PCR) Negative (NEGATIVE) 07/06/24 09:20 Influenza Type A (PCR) Negative (NEGATIVE) 07/06/24 09:20 Influenza Type B (PCR) Negative (NEGATIVE) 07/06/24 09:20 RSV (PCR) Negative (NEGATIVE) 07/06/24 09:20 Reason For Visit: TRANSIENT HYPOTENSION; CLOSED PELVIC FRACTURE Discharge Diagnosis All Active Problems (Updated 07/08/24 @ 12:01 by Abby James MD) Orthostatic hypotension (Acute) Generalized weakness (Acute) TRISTIAN (acute kidney injury) (Acute) Hypomagnesemia (Acute) Simple laceration of tongue (Acute) Fall (Acute) Acute hypotension (Acute) Closed pelvic fracture (Acute) Contusion of scalp, initial encounter (Acute) Dyspnea and respiratory abnormalities (Acute) Near syncope (Acute) Dizziness (Acute) Irregular heart rate (Acute) Hypertension (Chronic) Hyperlipidemia (Chronic) History of prostate cancer (Chronic) Hypothyroidism (Chronic) TIA (transient ischemic attack) (Acute) Dyspnea on effort (Acute) Erectile disorder due to medical condition in male (Acute) Acute chest wall pain (Acute) Chest pain (Acute) Breath shortness (Acute) Plan of Treatment: Continue with present treatment and follow up plan. Pt is to keep follow up appointment as instructed and take medications as ordered. Discharge Medications Discharge Medications: No Known Drug Allergies [NKDA] Allergy (Verified 05/18/23 23:08) CONTINUE taking the following medications aspirin 81 mg tablet,delayed release 81 mg PO DAILY 07/06/24 [History] carvedilol 6.25 mg tablet 6.25 mg PO BID 07/06/24 [History] clopidogrel 75 mg tablet 75 mg PO QDAY 07/06/24 [History] sacubitril 24 mg-valsartan 26 mg tablet (Entresto) 1 tab PO DAILY 07/06/24 [History] terazosin 5 mg capsule 5 mg PO QPM 07/06/24 [History] Discharge Disposition Discharge Disposition: swing bed status Discharge Condition: stable Discharge Plan Discharge Plan Hospital Course: Mr Bynum is a 84y/o male with a PMH of CAD s/p PCI, HTN, HLD, Hypothyroidism and Prostate cancer presented after he was found on the floor. Patient apparently had a fall at night and was not able to get up due to pain and stiffness in the right leg. Daughter states his BP had been slightly low. He called his daughter rn charge and was brought to the ER for evaluation. He does not recall much about what happened. Denies any other symptoms. ER work up included Head CT which showed scalp hematoma, Hip CT showed right acetabulum fracture and right inf ramus fracture non-displaced. Dr Stephenson with Ortho was contacted and did not recommend any further intervention. UDS neg. Flu/COVID/RSV negative. Patient was admitted for pain management and physical therapy. His labs were monitored daily and electrolytes were replaced as needed. His BP was noted to be low so aldactone was held. He did have orthostatic hypotension which was treated with fluids. Patient reports feeling dizzy at times when standing up. Carotid US was also done which did not show anything significant. He was working with PT and was advised rehab placement. Patient will be admitted as swing bed for PT/OT. Patient Disposition: 61 XFER/DISC TO [facility] Condition: Stable Health Concerns: Post Hospitalization: new medications and changes needed to prevent readmission or further decline. Pt educated and given instructions on all concerns. Care Plan Goals: Problem: Pain/Alteration in Comfort Goal: Improve/ Resolve Pain; Achieve Pain Tolerance Instructions: Take pain medications as prescribed. Contact your primary care provider if your pain is unrelieved or worsens. Follow up with primary care provider as directed. Plan of Treatment: Continue with present treatment and follow up plan. Pt is to keep follow up appointment as instructed and take medications as ordered. Prescription drug monitoring program results: PDMP was not reviewed Prescriptions: No Action atorvastatin 40 mg tablet 40 mg PO QPM clonazepam 1 mg tablet 1 mg PO QPM spironolactone 25 mg tablet 25 mg PO QDAY levothyroxine 100 mcg tablet 100 mcg PO QDAY tamsulosin 0.4 mg capsule 1 cap PO QPM montelukast 10 mg tablet 10 mg PO QDAY terazosin 5 mg capsule 5 mg PO QPM carvedilol 6.25 mg tablet 6.25 mg PO BID clopidogrel 75 mg tablet 75 mg PO QDAY aspirin [Aspir-81] 81 mg Tablet,Delayed Release (Dr/Ec) 81 mg PO DAILY Entresto 24-26 mg Tablet 1 tab PO DAILY Follow ups/Referrals Follow ups/Referrals: Srinivasa Aviles [Primary Care Provider] - 3 days Rashard Stephenson [CONSULTING PHYSICIAN] - 07/12/24 2:00 pm Instructions Instructions: Fall Prevention in the Home, Adult, Eput-sc-Ighb, Hypotension, Idba-gn-Gvqt, Facial or Scalp Contusion, Mgmw-wk-Iwyr Stand Alone Forms: Excuse From Work or School, Find Help Web Site, Post Hospital Follow Up Care
== END 2024-07-13 12:59 | disposition swing bed (61) | DRG 536 ==
LOC: MED/SURG 09:01 → U 09:01 → ER 09:01 → OBSVTOIN 12:51 → MED/SURG 14:42
PROVIDERS: ADMIT Internal Medicine; ATTEND Internal Medicine
DX: E86.0 Dehydration; W18.39XA Other fall on same level, initial encounter; R26.89 Other abnormalities of gait and mobility; R53.1 Weakness; Y92.099 Unspecified place in other non-institutional residence as the place of occurrence of the external cause; K21.9 Gastro-esophageal reflux disease without esophagitis; S32.591A Other specified fracture of right pubis, initial encounter for closed fracture; M25.561 Pain in right knee; E83.42 Hypomagnesemia; I25.10 Atherosclerotic heart disease of native coronary artery without angina pectoris; I95.1 Orthostatic hypotension; R42 Dizziness and giddiness; S00.03XA Contusion of scalp, initial encounter; E03.8 Other specified hypothyroidism; S32.491A Other specified fracture of right acetabulum, initial encounter for closed fracture; I10 Essential (primary) hypertension; Z85.46 Personal history of malignant neoplasm of prostate; Z03.818 Encounter for observation for suspected exposure to other biological agents ruled out; N17.8 Other acute kidney failure; M25.511 Pain in right shoulder; E78.2 Mixed hyperlipidemia

== ENCOUNTER 2024-07-13 13:00 | Inpatient (IN) ==
[2024-07-13] MEDS ORDERED: BUTT CREAM (COMPOUND) TOP PRN (17:19)
[2024-07-13] MEDS ORDERED: TYLENOL 325 MG TAB PO PRN (17:19)
--- NOTE | 2024-07-13 19:44 | PT/OTEVAL ---
PT/OT OBJECTIVES - HISTORY Prescription: PT Consult Diagnosis: Closed Pelvic Fracture s/p Fall Precautions: Fall Risk, Decreased Safety Awareness PMH: Anxiety, CAD, Dyslipidemia, GERD, HTN, Hypothyroidism, Cataracts, Prostate Sx s/p Radiation, Pulmonary Fibrosis, Angio/Stents, Joint Replacement, Ortho Sx, Tonsillectomy, Hemorrhoid Sx Prior Level of Function: Independent Other: Per patient report and confirmed by daughter present in room- pt resides alone in single story home with 3 steps to enter and BHR. PLOF: Independent within home and community without a device but would use SPC as needed for safety. 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 History of Present Illness: Mr. Hess is an 84 year old male who was initially brought to [facility] ER on 07/06/2024 after being found on the floor by family after reports of passing out. Pt with complaints of pain and found to have a pelvic fracture- ortho reviewed pt's case with no further orthopedic interventions recommended. Pt was noted with decline in BLE strength, balance, functional activity tolerance and overall independence and safety with functional mobility tasks from PLOF and unable to safely return home. Pt was transition for swing bed rehab to address issues and facilitate highest level of function and safe discharge planning. - COGNITION Mental Status: Name, Confused, Decreased Safety Awarenes Communication Status: Verbal - PAIN Bilateral LEs/pelvic region Pain Scale: Discomfort Comments: R > L side mostly with AROM to BLEs. - BED MOBILITY Rolling: Minimal - TRANSFERS Supine to Sit: Moderate Sit to Stand: Maximum Sit or Stand Pivot: Maximum Safety (requires cues for:): Hand Placement Precaution - BALANCE Static Sitting: Good Standing: Poor Dynamic Sitting: Fair Standing: Poor Balance Comment: Poor- - NEUROMOTOR/SENSATION Deejay. Lower Ext Sensation: WFL Coordination: WFL Proprioception: WFL - ROM Right LE ROM: WFL Muscle Tone: WFL Left LE ROM: WFL Muscle Tone: WFL - STRENGTH Right LE Strength Number: 3 Other comment: 10/13 Left LE Strength Number: 3 - GAIT Pt. ambulates how many feet?: 5 Amount of Assistance Required: Maximum Type of Assistive Device: Rolling Walker Comments: Decreased safety awareness noted- further ambulation deferred - TREATMENT Date: 12/03/24 Time: 02:30 Treatment Type: Evaluation Treatment Provided: Therapeutic Activities - TOTAL TREATMENT TIME Total Time: 45 - POST ASSESSMENT Post Assessment Comment: Pt was found seated in recliner chair in room- pt noted with increased confusion this date from when previously seen by this PT in acute care. Required increased time to re-orient pt as he kept thinking he was at his personal home. Pt required mod to max assist for bed mobility tasks and transfers with max cues for safety and sequencing. Ambulated 5ft with FWW and max assist; however, difficulty following commands for safety and further ambulation deferred. Pt left seated in recliner chair with call estrella in reach and all needs met. Pt would benefit from continued participation in PT services to address deficits and facilitate highest level of function and safe discharge planning. - EXIT DISPOSITION Exit Position: CHAIR Call light in reach: Yes PT/OT ASSESSMENT - PT Problem List: Decreased Bed Mobility, Decreased Transfers, Decreased Gait, Decreased Balance, Decreased Safety, Decreased LE Strength, Other Other, Comment: Manual Therapy - PT GOALS Short Term Goals Days: 10 Mobility: Pt will perform bed mobility tasks with min assist Transfers: Pt will perform functional transfers with min assist Gait: Pt will ambulate 75ft with FWW with min assist Balance: Pt will increase static standing balance to fair+/good- Horticulture Superintendent Goals Days: 20 Mobility: Pt will perform bed mobility tasks with mod I Transfers: Pt will perform functional transfers with mod I Gait: Pt will ambulate 200ft with LRAD and mod I Balance: Pt will increase dynamic standing balance to fair ROM/Strength: Pt will increase BLE strength to 5/5 Others: Pt will ascend/descend 3 steps with HR and mod I - PATIENT GOALS Patient/Family Goals: "I want to do my therapy and go home" Goals Discussed with Patient/Family: Yes Rehabilitation Potential: Good to meet stated goals Justification for Potential: Facilitat highest level of function and safe discharge planning Weakness and Barriers: Cognitive Barrier If yes, explain: Pt noted with varying levels of confusion throughout day. - PLAN Suggested Treatment Plan: Bed Mobility Training, Therapeutic Activity, Gait Training, Neuro Re-education, Therapeutic Ex with HEP, Patient Education, Family Education, Other Other comment: Manual Therapy - FREQUENCY AND DURATION PT: 5-6x per week x 20 days Expected Continuation of Care at Discharge: Determined on Progress Anticipated Equipment Needs: TBD pending progress with therapy
[2024-07-13] MEDS: LIPITOR TAB 40 MG PO SCH (21:30)
[2024-07-13] MEDS: FLOMAX PO SCH (21:30)
[2024-07-13] MEDS: KLONOPIN TAB 1 MG PO SCH (21:30)
[2024-07-13] MEDS: COLACE CAP 100 MG PO SCH (21:30)
[2024-07-14 06:25] LABS: BASOPHILS # (AUTO) 0.1 X10^3/uL (0.0-0.1); BASOPHILS % (AUTO) 0.7 % (0.2-1.0); EOSINOPHILS # (AUTO) 0.2 x10^3/uL (0.0-0.2); HEMATOCRIT 32.8 % (42.0-54.0); HEMOGLOBIN 11.7 g/dL (13.5-18.0); LYMPHOCYTES # (AUTO) 2.1 X10^3/uL (1.3-2.9); LYMPHOCYTES % (AUTO) 27.1 % (21.0-51.0); MEAN CORPUSCULAR HEMOGLOBIN 33.4 pg (27.0-34.0); MEAN CORPUSCULAR HGB CONC 35.7 g/dL (33.0-35.0); MEAN CORPUSCULAR VOLUME 93.6 fL (80.0-100.0); MEAN PLATELET VOLUME 7.9 fL (7.4-11.0); MONOCYTES # (AUTO) 0.8 x10^3/uL (0.3-0.8); MONOCYTES % (AUTO) 9.6 % (0.0-13.0); NEUTROPHILS # (AUTO) 4.7 x10^3/uL (2.2-4.8); NEUTROPHILS % (AUTO) 59.6 % (42.0-75.0); PLATELET COUNT 159 X10^3/uL (150.0-450.0); RED BLOOD COUNT 3.51 X10^6/uL (4.7-6.0); RED CELL DISTRIBUTION WIDTH 14.1 % (11.6-16.5); WHITE BLOOD COUNT 7.8 X10^3/uL (3.6-10.0)
[2024-07-14 06:37] LABS: ALANINE AMINOTRANSFERASE 51 Units/L (12-78); ALBUMIN 2.6 g/dL (3.4-5.0); ALKALINE PHOSPHATASE 144 Units/L (46-116); ASPARTATE AMINO TRANSFERASE 54 Units/L (15-37); BLOOD UREA NITROGEN 21 mg/dL (7-18); CALCIUM 8.6 mg/dL (8.5-10.1); CARBON DIOXIDE 27.7 mmol/L (21-32); CHLORIDE 104 mmol/L (98-107); COR CA(FOR HYPOALB) 9.7 mg/dL (8.5-10.1); CREATININE 1.01 mg/dL (0.70-1.30); GLUCOSE 91 mg/dL (65-99); POTASSIUM 4.2 mmol/L (3.5-5.1); SODIUM 140 mmol/L (136-145); TOTAL PROTEIN 5.9 g/dL (6.4-8.2); eGFR NON BLACK RACES > 60 (>60)
[2024-07-14 08:41] VITALS: BMI 25.0
[2024-07-14] MEDS: ENTRESTO 24/26 MG TABLET PO SCH (08:55)
[2024-07-14] MEDS: SINGULAIR TAB 10 MG PO SCH (08:55)
[2024-07-14] MEDS: SYNTHROID 100 mcg TAB PO SCH (08:55)
[2024-07-14] MEDS: ASPIRIN EC 81 MG PO SCH (08:55)
[2024-07-14] MEDS: PLAVIX PO SCH (08:55)
[2024-07-14] MEDS ORDERED: ARTIFICIAL TEARS DROPS AFFEYE PRN (09:29)
[2024-07-14] MEDS ORDERED: KLONOPIN TAB 1 MG PO PRN (09:44)
--- NOTE | 2024-07-14 09:46 | DR.H&P ---
H&P History & Physical for Day of: H&P Date: 07/14/24 Chief Complaint Chief Complaint: pelvic fracture, weakness History of Present Illness History of Present Illness: Mr Hess is a 84y/o male with a PMH of CAD, HTN, HLD, GERD and anxiety presented after having a fall at home. He was complaining of being dizzy when he stands up. He was noted to have pelvic fracture, ortho recommended supportive care with no surgical intervention. He was noted to be orthostatic and treated with fluids. PT recommended rehab placement so patient is being admitted as swing bed for therapy. Labs/imaging reviewed Plan: admit as swing bed for PT/OT. Continue current medications. Continue pain meds prn. Monitor labs prn. Past Medical History Past Medical History: Anxiety, Coronary Artery Disease, Dyslipidemia, GERD, Hypertension and Hypothyroidism Additional Medical History: Cataracts, Prostate Cancer with Radiation in 2014, pulmonary fibrosis Past Surgical History Surgical History: Angioplasty/Stents, Joint Replacement, Ortho Surgery and Tonsillectomy Additional Surgical History: Cataract surgery, Hemorrhoid surgery Family History Family Medical History: Coronary Artery Disease and Hypertension Social History Type of Tobacco Use: None Does any household member use tobacco: No Alcohol Use: None Drug Use: None Medications Home Medications: Home Medications Medication Instructions Recorded Confirmed Type atorvastatin 40 mg tablet 40 mg PO QPM 08/23/22 07/13/24 History clonazepam 1 mg tablet 1 mg PO QPM 08/23/22 07/13/24 History levothyroxine 100 mcg tablet 100 mcg PO QDAY 08/23/22 07/13/24 History montelukast 10 mg tablet 10 mg PO QDAY 08/23/22 07/13/24 History spironolactone 25 mg tablet 25 mg PO QDAY 08/23/22 07/13/24 History tamsulosin 0.4 mg capsule 1 cap PO QPM 08/23/22 07/13/24 History aspirin 81 mg tablet,delayed 81 mg PO DAILY 07/06/24 07/13/24 History release carvedilol 6.25 mg tablet 6.25 mg PO BID 07/06/24 07/13/24 History clopidogrel 75 mg tablet 75 mg PO QDAY 07/06/24 07/13/24 History sacubitril 24 mg-valsartan 26 mg 1 tab PO DAILY 07/06/24 07/13/24 History tablet (Entresto) terazosin 5 mg capsule 5 mg PO QPM 07/06/24 07/13/24 History Allergies Allergies Allergy/AdvReac Type Severity Reaction Status Date / Time No Known Drug Allergies Allergy Verified 05/18/23 23:08 [NKDA] Labs 07/14/24 06:03 07/14/24 06:03 Labs: Laboratory WBC 7.8 X10^3/uL (3.6-10.0) 07/14/24 06:03 RBC 3.51 X10^6/uL (4.7-6.0) L 07/14/24 06:03 Hgb 11.7 g/dL (13.5-18.0) L 07/14/24 06:03 Hct 32.8 % (42.0-54.0) L 07/14/24 06:03 MCV 93.6 fL (80.0-100.0) 07/14/24 06:03 MCH 33.4 pg (27.0-34.0) 07/14/24 06:03 MCHC 35.7 g/dL (33.0-35.0) H 07/14/24 06:03 RDW 14.1 % (11.6-16.5) 07/14/24 06:03 Plt Count 159 X10^3/uL (150.0-450.0) 07/14/24 06:03 MPV 7.9 fL (7.4-11.0) 07/14/24 06:03 Neut % (Auto) 59.6 % (42.0-75.0) 07/14/24 06:03 Lymph % (Auto) 27.1 % (21.0-51.0) 07/14/24 06:03 [place] % (Auto) 9.6 % (0.0-13.0) 07/14/24 06:03 Eos % (Auto) 3.0 % (0.9-2.9) H 07/14/24 06:03 Baso % (Auto) 0.7 % (0.2-1.0) 07/14/24 06:03 Neut # (Auto) 4.7 x10^3/uL (2.2-4.8) 07/14/24 06:03 Lymph # (Auto) 2.1 X10^3/uL (1.3-2.9) 07/14/24 06:03 [place] # (Auto) 0.8 x10^3/uL (0.3-0.8) 07/14/24 06:03 Eos # (Auto) 0.2 x10^3/uL (0.0-0.2) 07/14/24 06:03 Baso # (Auto) 0.1 X10^3/uL (0.0-0.1) 07/14/24 06:03 Absolute Nucleated RBC 0.0 /100WBC 07/14/24 06:03 Sodium 140 mmol/L (136-145) 07/14/24 06:03 Corrected Sodium TNP 07/14/24 06:03 Potassium 4.2 mmol/L (3.5-5.1) 07/14/24 06:03 Chloride 104 mmol/L (98-107) 07/14/24 06:03 Carbon Dioxide 27.7 mmol/L (21-32) 07/14/24 06:03 BUN 21 mg/dL (7-18) H 07/14/24 06:03 Creatinine 1.01 mg/dL (0.70-1.30) 07/14/24 06:03 Est GFR (MDRD) Af Amer > 60 (>60) 07/14/24 06:03 Est GFR (MDRD) Non-Af > 60 (>60) 07/14/24 06:03 Glucose 91 mg/dL (65-99) 07/14/24 06:03 Calcium 8.6 mg/dL (8.5-10.1) 07/14/24 06:03 Corrected Calcium 9.7 mg/dL (8.5-10.1) 07/14/24 06:03 Total Bilirubin 2.70 mg/dL (0.2-1.0) H 07/14/24 06:03 AST 54 Units/L (15-37) H 07/14/24 06:03 ALT 51 Units/L (12-78) 07/14/24 06:03 Alkaline Phosphatase 144 Units/L (46-116) H 07/14/24 06:03 Total Protein 5.9 g/dL (6.4-8.2) L 07/14/24 06:03 Albumin 2.6 g/dL (3.4-5.0) L 07/14/24 06:03 Globulin 3.3 g/dL (2.5-4.5) 07/14/24 06:03 Albumin/Globulin Ratio 0.8 Ratio (1.1-2.1) L 07/14/24 06:03 Review of Systems Constitutional: Weakness Eyes: No Symptoms Reported ENT: No Symptoms Reported Respiratory: No Symptoms Reported Cardiovascular: No Symptoms Reported Gastrointestinal: No Symptoms Reported Genitourinary: No Symptoms Reported Musculoskeletal: No Symptoms Reported Skin: Rash Neurological: Confusion Physical Exam Vital Signs: Vital Signs Temperature 98.8 F Pulse Rate [Radial] 79 Respiratory Rate 18 Blood Pressure [Right Arm] 148/71 O2 Sat by Pulse Oximetry 96 Oriented: Normal Eyes: Redness Nose: Normal Throat: Normal Respiratory: Clear Throughout Cardiovascular: Normal Auscultation: Bowel Sounds: Normal Palpation: Normal Tenderness: Normal Skin: Rash and Other (mid back area: maculopapular rash noted, no drainage ) Musculoskeletal: Motor Deficit and Instability Psychiatric: Normal Mood Description: Calm Affect: Normal Speech Pattern: Clear and Appropriate Assessment/Plan (1) Generalized weakness: Status: Acute (2) Orthostatic hypotension: Status: Acute (3) Fall: Qualifiers: Encounter type: initial encounter Qualified Code(s): W19.XXXA - Unspecified fall, initial encounter Status: Acute (4) Closed pelvic fracture: Qualifiers: Encounter type: initial encounter Fracture alignment: nondisplaced Laterality: right Pelvic bone location: acetabulum Sublocation of acetabulum: unspecified portion of acetabulum Qualified Code(s): S32.401A - Unspecified fracture of right acetabulum, initial encounter for closed fracture Status: Acute Review H&P Reviewed: Yes Patient was examined?: Yes
[2024-07-15] MEDS: NORCO 5/325 MG TAB PO PRN (04:24)
[2024-07-15 06:22] LABS: BASOPHILS % (AUTO) 0.7 % (0.2-1.0); EOSINOPHILS # (AUTO) 0.2 x10^3/uL (0.0-0.2); EOSINOPHILS % (AUTO) 3.7 % (0.9-2.9); HEMATOCRIT 28.4 % (42.0-54.0); HEMOGLOBIN 10.3 g/dL (13.5-18.0); LYMPHOCYTES # (AUTO) 0.9 X10^3/uL (1.3-2.9); LYMPHOCYTES % (AUTO) 20.3 % (21.0-51.0); MEAN CORPUSCULAR HEMOGLOBIN 34.4 pg (27.0-34.0); MEAN CORPUSCULAR HGB CONC 36.2 g/dL (33.0-35.0); MEAN CORPUSCULAR VOLUME 94.8 fL (80.0-100.0); MEAN PLATELET VOLUME 8.5 fL (7.4-11.0); MONOCYTES # (AUTO) 0.5 x10^3/uL (0.3-0.8); MONOCYTES % (AUTO) 11.4 % (0.0-13.0); NEUTROPHILS # (AUTO) 2.7 x10^3/uL (2.2-4.8); NEUTROPHILS % (AUTO) 63.9 % (42.0-75.0); PLATELET COUNT 124 X10^3/uL (150.0-450.0); RED BLOOD COUNT 2.99 X10^6/uL (4.7-6.0); RED CELL DISTRIBUTION WIDTH 13.8 % (11.6-16.5); WHITE BLOOD COUNT 4.3 X10^3/uL (3.6-10.0)
[2024-07-15 06:38] LABS: ALANINE AMINOTRANSFERASE 44 Units/L (12-78); ALBUMIN 2.3 g/dL (3.4-5.0); ALKALINE PHOSPHATASE 141 Units/L (46-116); ASPARTATE AMINO TRANSFERASE 41 Units/L (15-37); BLOOD UREA NITROGEN 21 mg/dL (7-18); CALCIUM 8.6 mg/dL (8.5-10.1); CARBON DIOXIDE 29.4 mmol/L (21-32); CHLORIDE 106 mmol/L (98-107); CREATININE 0.91 mg/dL (0.70-1.30); GLUCOSE 98 mg/dL (65-99); POTASSIUM 4.1 mmol/L (3.5-5.1); SODIUM 140 mmol/L (136-145); TOTAL PROTEIN 5.3 g/dL (6.4-8.2); eGFR NON BLACK RACES > 60 (>60)
[2024-07-15] MEDS: TobraDEX OPHTH SUSP AFFEYE SCH (13:22)
[2024-07-15] MEDS: KENALOG CREAM TOP SCH (13:40)
--- NOTE | 2024-07-15 16:44 | PT/OTEVAL ---
PT/OT OBJECTIVES - HISTORY Prescription: OT Consult Diagnosis: Closed Pelvic Fracture s/p fall Precautions: Fall risk, decreased safety awareness PMH: Anxiety, CAD, dyslipidemia, GERD, HTN, Hypothyroidism, Cataracts, Prostate sx s/p radiation, Pulmonary Fibrosis, Angio/Stents, Joint Replacement, Ortho sx, Tonsillectomy, hemorrhoid sx Other: Per patient report and confirmed by daughter present in room- pt resides alone in single story home with 3 steps to enter and BHR. PLOF: Independent with ADLs, occasionally would use SPC as needed for safety. 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 History of Present Illness: Mr. Hess is an 84 year old male who was initially brought to [facility] ER on 07/06/2024 after being found on the floor by amos aly after reports of passing out. Pt with complaints of pain and found to have a pelvic fracture- ortho reviewed pt's case with no further orthopedic interventions recommended. Pt was noted with decline in BLE strength, balance, functional activity tolerance and overall independence and safety with functional mobility tasks from PLOF and unable to safely return home. Pt was transition for swing bed rehab to address issues and facilitate highest level of function and safe discharge planning. - COGNITION Mental Status: Name, Confused, Decreased Safety Awarenes Communication Status: Verbal Ability to Follow Directions: 1 Step - PAIN Bilateral LEs/pevlic region Comments: Bilateral LEs/pelvic region Pain Scale: Discomfort Comments: R > L side mostly with AROM to BLEs. - BED MOBILITY Rolling: Minimal - TRANSFERS Supine to Sit: Minimal Sit to Stand: Minimal Toileting: Moderate Safety (requires cues for:): Hand Placement Precaution - ADL'S Upper Body ADL: Minimum Lower Body ADL: Maximum Toileting: Maximum Bathing: Moderate Hygeine: Moderate - BALANCE Static Sitting: Good Standing: Poor Dynamic Sitting: Good Standing: Fair - NEUROMOTOR/SENSATION Deejay. Lower Ext Sensation: WFL Coordination: WFL Proprioception: WFL Deejay. Upper Ext Sensation: WFL Coordination: WFL - HAND DOMINANCE Extremity Function: Hand Dominance: Right - ROM Left UE ROM: WFL Right UE ROM: Impaired - STRENGTH Right LE Strength Number: 3 Other comment: 10/13 Left LE Strength Number: 3 Left UE Strength Number: 3 Other comment: 3/5 in LUE Right UE Strength Number: 2 Other comment: 2-/5 in shoulder and elbow. - TREATMENT Date: 07/15/24 Time: 08:00 Treatment Type: Evaluation Treatment Provided: Other - TOTAL TREATMENT TIME Total Time: 105 - POST ASSESSMENT Post Assessment Comment: Pt was seen for skilled OT to assess CLOF. Pt was agreeable to participate with skilled OT. Pt showered and dressed this date with min A UB, mod A for bathing and hygiene and LB and toileting with max A. Pt requried extra time to complete task. Pt is confused. Pt c/o being itchy on his back. Pt L eye was bleeding after he washed his face. Pt unsteady on feet, and needed max VC for safety. Pt would benefit from skilled OT to address ADL function to facilitate highest level of ADL function needed for safe d/c planning. - EXIT DISPOSITION Exit Position: CHAIR Call light in reach: Yes PT/OT ASSESSMENT - OT Problem List: Decreased Mobility ADL's, Decreased Safety Aware, Decreased Dressing, Decreased Bathing, Decreased Grooming, Decreased UE Strength - PT GOALS Short Term Goals Days: 10 Mobility: Pt will perform bed mobility tasks with min assist Transfers: Pt will perform functional transfers with min assist Gait: Pt will ambulate 75ft with FWW with min assist Balance: Pt will increase static standing balance to fair+/good- Data Control Assistant Goals Days: 20 Mobility: Pt will perform bed mobility tasks with mod I Transfers: Pt will perform functional transfers with mod I Gait: Pt will ambulate 200ft with LRAD and mod I Balance: Pt will increase dynamic standing balance to fair ROM/Strength: Pt will increase BLE strength to 5/5 Others: Pt will ascend/descend 3 steps with HR and mod I - OT GOALS Data Control Assistant Goals Days: 20 Mobility for ADL's: Pt to functionally AMB with LRAD and set up A Safety Awareness: Pt to improve safety to G Dressing: Pt to improve LB dressing with set up A Bathing: Pt to improve overall bathing to set up A Grooming: Pt to improve grooming to (I) Upper Ext. Strength/Use: Pt to improve MMT in BUE by 1 grade Short Term Goals Days: 10 Mobility for ADL's: Pt to functionally AMB with LRAD and supv A Safety Awareness: Pt to improve safety to F+ Dressing: Pt to improve UB dressing with set up A Bathing: Pt to improve overall bathing to touch A Other: Pt to improve FAT to F+ - PATIENT GOALS Patient/Family Goals: Im ready to go home Goals Discussed with Patient/Family: Yes Rehabilitation Potential: Good to meet stated goals Justification for Potential: To facilitate highest level of ADL function needed for safe d/c planning. Weakness and Barriers: Cognitive Barrier - PLAN Suggested Treatment Plan: Therapeutic Activity, Self Care Training, Neuro Re- education, Therapeutic Ex with HEP, Patient Education, Family Education - FREQUENCY AND DURATION OT: 5x a week for 20 days Expected Continuation of Care at Discharge: Determined on Progress Anticipated Equipment Needs: TBD pending progress with therapy
[2024-07-17] MEDS: MILK OF MAGNESIA PO PRN (12:36)
[2024-07-17] MEDS: VIBRAMYCIN PO SCH (21:11)
--- NOTE | 2024-07-18 08:30 | PCM.PROG ---
Progress Note Progress Note for Day of Date of Exam: 07/17/24 Subjective Subjective: Pt is a 84y/o male with a PMH of CAD, HTN, HLD, GERD and anxiety admitted for swing bed for PT/OT after having a pelvic fracture, ortho recommended supportive care with no surgical intervention. PT recommended rehab placement so patient is being admitted as swing bed for therapy. This morning he is sitting in recliner. No acute events overnight. Labs: WBC 4.3, hemoglobin 10.3, platelets 124, sodium 140, potassium 4.1, creatinine 0.91, glucose 98. Patient does have a right elbow skin abrasion that does have some discharge and smell to it. Will culture and start on doxycycline for 7 days. Follow-up culture results. Otherwise continue with current treatment plan. PT/OT. Continue current medications. Continue pain meds prn. Monitor labs prn. Past Medical Family Social History Allergies: Allergies No Known Drug Allergies [NKDA] Allergy (Verified 05/18/23 23:08) Review of Systems ROS changes noted: see HPI Vital Signs and I&O's Intake and Output: Intake & Output 07/15/24 07/16/24 07/17/24 07/18/24 23:59 23:59 23:59 23:59 Intake Total 1400 / 1400 1220 / 1220 410 / 410 380 / 380 Output Total 810 / 810 820 / 820 211 / 211 Balance 1399 / 1399 410 / 410 -410 / -410 169 / 169 Physical Exam Oriented: Normal Eyes: Redness Nose: Normal Throat: Normal Respiratory: Normal Cardiovascular: Normal Auscultation: Bowel Sounds: Normal Tenderness: Normal Skin: Rash, Wound (right elbow skin abrasion) and Other (mid back area: maculopapular rash noted, no drainage ) Musculoskeletal: Motor Deficit and Instability Psychiatric: Normal Mood Description: Calm Affect: Normal Speech Pattern: Clear Laboratory and Diagnostics 07/15/24 05:20 07/15/24 05:20 Labs: 07/17/24 11:15 Drainage Wound Gram Stain - Final Laboratory WBC 4.3 X10^3/uL (3.6-10.0) 07/15/24 05:20 RBC 2.99 X10^6/uL (4.7-6.0) L 07/15/24 05:20 Hgb 10.3 g/dL (13.5-18.0) L 07/15/24 05:20 Hct 28.4 % (42.0-54.0) L 07/15/24 05:20 MCV 94.8 fL (80.0-100.0) 07/15/24 05:20 MCH 34.4 pg (27.0-34.0) H 07/15/24 05:20 MCHC 36.2 g/dL (33.0-35.0) H 07/15/24 05:20 RDW 13.8 % (11.6-16.5) 07/15/24 05:20 Plt Count 124 X10^3/uL (150.0-450.0) L 07/15/24 05:20 MPV 8.5 fL (7.4-11.0) 07/15/24 05:20 Neut % (Auto) 63.9 % (42.0-75.0) 07/15/24 05:20 Lymph % (Auto) 20.3 % (21.0-51.0) L 07/15/24 05:20 [place] % (Auto) 11.4 % (0.0-13.0) 07/15/24 05:20 Eos % (Auto) 3.7 % (0.9-2.9) H 07/15/24 05:20 Baso % (Auto) 0.7 % (0.2-1.0) 07/15/24 05:20 Neut # (Auto) 2.7 x10^3/uL (2.2-4.8) 07/15/24 05:20 Lymph # (Auto) 0.9 X10^3/uL (1.3-2.9) L 07/15/24 05:20 [place] # (Auto) 0.5 x10^3/uL (0.3-0.8) 07/15/24 05:20 Eos # (Auto) 0.2 x10^3/uL (0.0-0.2) 07/15/24 05:20 Baso # (Auto) 0.0 X10^3/uL (0.0-0.1) 07/15/24 05:20 Absolute Nucleated RBC 0.0 /100WBC 07/15/24 05:20 Sodium 140 mmol/L (136-145) 07/15/24 05:20 Corrected Sodium TNP 07/15/24 05:20 Potassium 4.1 mmol/L (3.5-5.1) 07/15/24 05:20 Chloride 106 mmol/L (98-107) 07/15/24 05:20 Carbon Dioxide 29.4 mmol/L (21-32) 07/15/24 05:20 BUN 21 mg/dL (7-18) H 07/15/24 05:20 Creatinine 0.91 mg/dL (0.70-1.30) 07/15/24 05:20 Est GFR (MDRD) Af Amer > 60 (>60) 07/15/24 05:20 Est GFR (MDRD) Non-Af > 60 (>60) 07/15/24 05:20 Glucose 98 mg/dL (65-99) 07/15/24 05:20 Calcium 8.6 mg/dL (8.5-10.1) 07/15/24 05:20 Corrected Calcium 10.0 mg/dL (8.5-10.1) 07/15/24 05:20 Total Bilirubin 2.00 mg/dL (0.2-1.0) H 07/15/24 05:20 AST 41 Units/L (15-37) H 07/15/24 05:20 ALT 44 Units/L (12-78) 07/15/24 05:20 Alkaline Phosphatase 141 Units/L (46-116) H 07/15/24 05:20 Total Protein 5.3 g/dL (6.4-8.2) L 07/15/24 05:20 Albumin 2.3 g/dL (3.4-5.0) L 07/15/24 05:20 Globulin 3.0 g/dL (2.5-4.5) 07/15/24 05:20 Albumin/Globulin Ratio 0.8 Ratio (1.1-2.1) L 07/15/24 05:20 Plan (1) Generalized weakness: Status: Acute (2) Orthostatic hypotension: Status: Acute (3) Fall: Status: Acute Qualifiers: Encounter type: initial encounter Qualified Code(s): W19.XXXA - Unspecified fall, initial encounter (4) Closed pelvic fracture: Status: Acute Qualifiers: Encounter type: initial encounter Fracture alignment: nondisplaced Laterality: right Pelvic bone location: acetabulum Sublocation of acetabulum: unspecified portion of acetabulum Qualified Code(s): S32.401A - Unspecified fracture of right acetabulum, initial encounter for closed fracture
[2024-07-19 06:04] LABS: BASOPHILS % (AUTO) 0.6 % (0.2-1.0); EOSINOPHILS # (AUTO) 0.1 x10^3/uL (0.0-0.2); EOSINOPHILS % (AUTO) 2.7 % (0.9-2.9); HEMOGLOBIN 10.5 g/dL (13.5-18.0); LYMPHOCYTES # (AUTO) 1.2 X10^3/uL (1.3-2.9); LYMPHOCYTES % (AUTO) 21.7 % (21.0-51.0); MEAN CORPUSCULAR HEMOGLOBIN 32.1 pg (27.0-34.0); MEAN CORPUSCULAR HGB CONC 34.9 g/dL (33.0-35.0); MEAN PLATELET VOLUME 7.2 fL (7.4-11.0); MONOCYTES # (AUTO) 0.5 x10^3/uL (0.3-0.8); MONOCYTES % (AUTO) 9.8 % (0.0-13.0); NEUTROPHILS # (AUTO) 3.5 x10^3/uL (2.2-4.8); NEUTROPHILS % (AUTO) 65.2 % (42.0-75.0); PLATELET COUNT 200 X10^3/uL (150.0-450.0); RED BLOOD COUNT 3.26 X10^6/uL (4.7-6.0); RED CELL DISTRIBUTION WIDTH 14.2 % (11.6-16.5); WHITE BLOOD COUNT 5.4 X10^3/uL (3.6-10.0)
[2024-07-19 06:20] LABS: ALANINE AMINOTRANSFERASE 35 Units/L (12-78); ALBUMIN 2.4 g/dL (3.4-5.0); ALKALINE PHOSPHATASE 197 Units/L (46-116); ASPARTATE AMINO TRANSFERASE 31 Units/L (15-37); BLOOD UREA NITROGEN 22 mg/dL (7-18); CALCIUM 8.5 mg/dL (8.5-10.1); CARBON DIOXIDE 30.4 mmol/L (21-32); CHLORIDE 104 mmol/L (98-107); COR CA(FOR HYPOALB) 9.8 mg/dL (8.5-10.1); GLUCOSE 101 mg/dL (65-99); POTASSIUM 4.3 mmol/L (3.5-5.1); SODIUM 139 mmol/L (136-145); TOTAL PROTEIN 5.5 g/dL (6.4-8.2); eGFR NON BLACK RACES > 60 (>60)
--- NOTE | 2024-07-19 13:07 | PCM.PROG ---
Progress Note Progress Note for Day of Date of Exam: 07/19/24 Subjective Subjective: Patient seen at bedside, no acute events overnight. He has been working with physical therapy and doing well. He is currently admitted for swing bed status for physical therapy after having a pelvic fracture. Ortho had recommended supportive care, no surgical intervention needed at this time. Patient does have an abrasion to his right elbow, wound culture grew Staph aureus. He is currently on doxycycline which does have intermediated resistance. Patient feels like he is ready to go home this week. Labs/imaging reviewed -WBC 5.4 hemoglobin 10.5 potassium 4.3 creatinine 0.90 -Wound culture Staph aureus Plan: Continue physical therapy as tolerated. Fall precautions. Will switch Doxy to Keflex. Replace electrolytes as needed. Will discuss with CM regarding when patient is stable to be discharged home. Continue home medications. Monitor labs as needed. Past Medical Family Social History Allergies: Allergies No Known Drug Allergies [NKDA] Allergy (Verified 05/18/23 23:08) Vital Signs and I&O's Vital Signs: Vital Signs Temperature 97.4 F Pulse Rate [Left Brachial] 69 Respiratory Rate 18 Blood Pressure [Right Arm] 129/64 O2 Sat by Pulse Oximetry 97 Intake and Output: Intake & Output 07/16/24 07/17/24 07/18/24 07/19/24 23:59 23:59 23:59 23:59 Intake Total 1220 / 1220 410 / 410 560 / 560 200 / 200 Output Total 810 / 810 820 / 820 661 / 661 220 / 220 Balance 410 / 410 -410 / -410 -101 / -101 -20 / -20 Physical Exam Oriented: Normal Eyes: Redness Nose: Normal Throat: Normal Respiratory: Normal Cardiovascular: Normal Auscultation: Bowel Sounds: Normal Palpation: Normal Tenderness: Normal Skin: Rash, Wound (right elbow skin abrasion) and Other (mid back area: maculopapular rash noted, no drainage ) Musculoskeletal: Motor Deficit and Instability Psychiatric: Normal Mood Description: Calm Affect: Normal Speech Pattern: Clear Laboratory and Diagnostics 07/19/24 05:47 07/19/24 05:47 Labs: 07/17/24 11:15 Drainage Wound Gram Stain - Final 07/17/24 11:15 Drainage Wound Culture - Preliminary Staphylococcus Aureus Laboratory WBC 5.4 X10^3/uL (3.6-10.0) 07/19/24 05:47 RBC 3.26 X10^6/uL (4.7-6.0) L 07/19/24 05:47 Hgb 10.5 g/dL (13.5-18.0) L 07/19/24 05:47 Hct 30.0 % (42.0-54.0) L 07/19/24 05:47 MCV 92.0 fL (80.0-100.0) 07/19/24 05:47 MCH 32.1 pg (27.0-34.0) 07/19/24 05:47 MCHC 34.9 g/dL (33.0-35.0) 07/19/24 05:47 RDW 14.2 % (11.6-16.5) 07/19/24 05:47 Plt Count 200 X10^3/uL (150.0-450.0) 07/19/24 05:47 MPV 7.2 fL (7.4-11.0) L 07/19/24 05:47 Neut % (Auto) 65.2 % (42.0-75.0) 07/19/24 05:47 Lymph % (Auto) 21.7 % (21.0-51.0) 07/19/24 05:47 Callahan % (Auto) 9.8 % (0.0-13.0) 07/19/24 05:47 Eos % (Auto) 2.7 % (0.9-2.9) 07/19/24 05:47 Baso % (Auto) 0.6 % (0.2-1.0) 07/19/24 05:47 Neut # (Auto) 3.5 x10^3/uL (2.2-4.8) 07/19/24 05:47 Lymph # (Auto) 1.2 X10^3/uL (1.3-2.9) L 07/19/24 05:47 Callahan # (Auto) 0.5 x10^3/uL (0.3-0.8) 07/19/24 05:47 Eos # (Auto) 0.1 x10^3/uL (0.0-0.2) 07/19/24 05:47 Baso # (Auto) 0.0 X10^3/uL (0.0-0.1) 07/19/24 05:47 Absolute Nucleated RBC 0.0 /100WBC 07/19/24 05:47 Sodium 139 mmol/L (136-145) 07/19/24 05:47 Corrected Sodium TNP 07/19/24 05:47 Potassium 4.3 mmol/L (3.5-5.1) 07/19/24 05:47 Chloride 104 mmol/L (98-107) 07/19/24 05:47 Carbon Dioxide 30.4 mmol/L (21-32) 07/19/24 05:47 BUN 22 mg/dL (7-18) H 07/19/24 05:47 Creatinine 0.90 mg/dL (0.70-1.30) 07/19/24 05:47 Est GFR (MDRD) Af Amer > 60 (>60) 07/19/24 05:47 Est GFR (MDRD) Non-Af > 60 (>60) 07/19/24 05:47 Glucose 101 mg/dL (65-99) H 07/19/24 05:47 Calcium 8.5 mg/dL (8.5-10.1) 07/19/24 05:47 Corrected Calcium 9.8 mg/dL (8.5-10.1) 07/19/24 05:47 Total Bilirubin 1.10 mg/dL (0.2-1.0) H 07/19/24 05:47 AST 31 Units/L (15-37) 07/19/24 05:47 ALT 35 Units/L (12-78) 07/19/24 05:47 Alkaline Phosphatase 197 Units/L (46-116) H 07/19/24 05:47 Total Protein 5.5 g/dL (6.4-8.2) L 07/19/24 05:47 Albumin 2.4 g/dL (3.4-5.0) L 07/19/24 05:47 Globulin 3.1 g/dL (2.5-4.5) 07/19/24 05:47 Albumin/Globulin Ratio 0.8 Ratio (1.1-2.1) L 07/19/24 05:47 Plan (1) Generalized weakness: Status: Chronic (2) Fall: Status: Acute Qualifiers: Encounter type: initial encounter Qualified Code(s): W19.XXXA - Unspecified fall, initial encounter (3) Closed pelvic fracture: Status: Acute Qualifiers: Encounter type: initial encounter Fracture alignment: nondisplaced Laterality: right Pelvic bone location: acetabulum Sublocation of acetabulum: unspecified portion of acetabulum Qualified Code(s): S32.401A - Unspecified fracture of right acetabulum, initial encounter for closed fracture
[2024-07-19] MEDS: KEFLEX CAP 500 MG PO SCH (14:09)
[2024-07-21 06:08] LABS: BASOPHILS % (AUTO) 0.5 % (0.2-1.0); EOSINOPHILS # (AUTO) 0.1 x10^3/uL (0.0-0.2); EOSINOPHILS % (AUTO) 2.1 % (0.9-2.9); HEMOGLOBIN 11.1 g/dL (13.5-18.0); LYMPHOCYTES # (AUTO) 1.1 X10^3/uL (1.3-2.9); LYMPHOCYTES % (AUTO) 20.9 % (21.0-51.0); MEAN CORPUSCULAR HEMOGLOBIN 33.3 pg (27.0-34.0); MEAN CORPUSCULAR HGB CONC 35.6 g/dL (33.0-35.0); MEAN CORPUSCULAR VOLUME 93.4 fL (80.0-100.0); MEAN PLATELET VOLUME 7.5 fL (7.4-11.0); MONOCYTES # (AUTO) 0.6 x10^3/uL (0.3-0.8); MONOCYTES % (AUTO) 10.9 % (0.0-13.0); NEUTROPHILS # (AUTO) 3.4 x10^3/uL (2.2-4.8); NEUTROPHILS % (AUTO) 65.6 % (42.0-75.0); PLATELET COUNT 209 X10^3/uL (150.0-450.0); RED BLOOD COUNT 3.32 X10^6/uL (4.7-6.0); RED CELL DISTRIBUTION WIDTH 14.2 % (11.6-16.5); WHITE BLOOD COUNT 5.2 X10^3/uL (3.6-10.0)
[2024-07-21 06:14] LABS: ALANINE AMINOTRANSFERASE 30 Units/L (12-78); ALBUMIN 2.6 g/dL (3.4-5.0); ALKALINE PHOSPHATASE 208 Units/L (46-116); ASPARTATE AMINO TRANSFERASE 28 Units/L (15-37); BLOOD UREA NITROGEN 20 mg/dL (7-18); CALCIUM 8.6 mg/dL (8.5-10.1); CARBON DIOXIDE 31.6 mmol/L (21-32); CHLORIDE 104 mmol/L (98-107); COR CA(FOR HYPOALB) 9.7 mg/dL (8.5-10.1); CREATININE 0.96 mg/dL (0.70-1.30); GLUCOSE 98 mg/dL (65-99); POTASSIUM 4.1 mmol/L (3.5-5.1); SODIUM 138 mmol/L (136-145); TOTAL PROTEIN 5.6 g/dL (6.4-8.2); eGFR NON BLACK RACES > 60 (>60)
[2024-07-22 21:24] VITALS: O2SAT 97
[2024-07-23 06:33] LABS: BASOPHILS % (AUTO) 0.8 % (0.2-1.0); EOSINOPHILS # (AUTO) 0.1 x10^3/uL (0.0-0.2); EOSINOPHILS % (AUTO) 2.2 % (0.9-2.9); HEMATOCRIT 31.2 % (42.0-54.0); LYMPHOCYTES # (AUTO) 1.3 X10^3/uL (1.3-2.9); LYMPHOCYTES % (AUTO) 26.6 % (21.0-51.0); MEAN CORPUSCULAR HEMOGLOBIN 32.5 pg (27.0-34.0); MEAN CORPUSCULAR HGB CONC 35.4 g/dL (33.0-35.0); MEAN CORPUSCULAR VOLUME 91.9 fL (80.0-100.0); MEAN PLATELET VOLUME 7.2 fL (7.4-11.0); MONOCYTES # (AUTO) 0.5 x10^3/uL (0.3-0.8); MONOCYTES % (AUTO) 10.8 % (0.0-13.0); NEUTROPHILS # (AUTO) 2.9 x10^3/uL (2.2-4.8); NEUTROPHILS % (AUTO) 59.6 % (42.0-75.0); PLATELET COUNT 211 X10^3/uL (150.0-450.0); RED CELL DISTRIBUTION WIDTH 14.5 % (11.6-16.5); WHITE BLOOD COUNT 4.8 X10^3/uL (3.6-10.0)
[2024-07-23 06:40] LABS: ALANINE AMINOTRANSFERASE 28 Units/L (12-78); ALBUMIN 2.7 g/dL (3.4-5.0); ALKALINE PHOSPHATASE 207 Units/L (46-116); ASPARTATE AMINO TRANSFERASE 26 Units/L (15-37); BLOOD UREA NITROGEN 28 mg/dL (7-18); CALCIUM 8.6 mg/dL (8.5-10.1); CARBON DIOXIDE 30.3 mmol/L (21-32); CHLORIDE 104 mmol/L (98-107); COR CA(FOR HYPOALB) 9.6 mg/dL (8.5-10.1); CREATININE 1.05 mg/dL (0.70-1.30); GLUCOSE 92 mg/dL (65-99); POTASSIUM 4.5 mmol/L (3.5-5.1); SODIUM 138 mmol/L (136-145); TOTAL PROTEIN 5.8 g/dL (6.4-8.2); eGFR NON BLACK RACES > 60 (>60)
[2024-07-23 09:03] VITALS: BP 110/67; PULSE 95; RESP 18; TEMP 98.1
== END 2024-07-23 11:45 | disposition home health service (06) | DRG 536 ==
LOC: MED/SURG 13:00
PROVIDERS: ADMIT Internal Medicine; ATTEND Internal Medicine
DX: Z59.41 Food insecurity; I25.10 Atherosclerotic heart disease of native coronary artery without angina pectoris; Z51.89 Encounter for other specified aftercare; B95.61 Methicillin susceptible Staphylococcus aureus infection as the cause of diseases classified elsewhere; R53.1 Weakness; I95.1 Orthostatic hypotension; Z16.29 Resistance to other single specified antibiotic; S32.491A Other specified fracture of right acetabulum, initial encounter for closed fracture; W18.39XA Other fall on same level, initial encounter; R42 Dizziness and giddiness; L89.151 Pressure ulcer of sacral region, stage 1; K21.9 Gastro-esophageal reflux disease without esophagitis; R26.89 Other abnormalities of gait and mobility